=== PATIENT | male | born 1955 | race Caucasian/White ===

== ENCOUNTER 2022-08-01 16:31 | Emergency (ER) | payer MEDICARE, MEDICAID, SELFPAY ==
--- NOTE | ~2022-08-01 | CT_ITS ---
EXAMINATION: CT HEAD WITHOUT CONTRAST CLINICAL INFORMATION: AMS COMPARISON: None available. TECHNIQUE: Contiguous axial imaging was performed from the skull base to vertex without intravenous administration of contrast. This CT examination was performed using dose optimization techniques as appropriate, variously including the following: *Automated exposure control *Adjustment of mA and/or kV according to patient size (this includes techniques or standardized protocols for targeted exams where dose is matched to indication/reason for exam; i.e. extremities or head) *Use of iterative reconstruction technique DLP: 707 mGy-cm FINDINGS: No intracranial hemorrhage is identified. No abnormal extra-axial fluid collection is seen. No significant mass effect or midline structure shift ayala-white matter interface is maintained. There is mild prominence of the ventricles, sulci, and cisterns. No significant white matter disease is appreciated. Ayala-white matter interface is maintained. The calvarium is intact. Pterygoid plates intact. Temporomandibular joints appear unremarkable. The visualized paranasal sinuses and mastoid air cells are unremarkable other than for a small mucosal cyst within the right sphenoid sinus. CT/CT head/brain wo IV con IMPRESSION: No acute intracranial pathology.
[2022-08-01 16:36] VITALS: BP 139/73; PULSE 100; PULSE 104; RESP 20; O2SAT 96; BMI 27.1
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
--- OUTSIDE RECORDS SUMMARY | 2022-08-01 17:01 | XMS_ITS | Continuity of Care Document ---
Author Name Unknown Organization [facility] ter Address [address] [place] [id number]- Care Team Providers Care Cash Applications Analyst Name Role Phone Lesley Vo MD Primary Care Physician Encounter [facility] [place] Date(s): 08/28/21 - 08/29/[address] [address]- Encounter Diagnosis Dementia(Final) - 08/28/21 Schizoaffective disorder(Final) - 08/28/21 Agitation(Final) - 08/28/21 Discharge Disposition: A-Transfer SNF Attending Physician: Cesar Rutledge MD Admitting Physician: Cesar Rutledge MD Referring Physician: Not on Staff, Referring MD Allergies, Adverse Reactions, Alerts No Known Allergies Medications Acetaminophen 160 mg / 5 mL Liquid 20 mls, By Mouth, Every 4 hours, PRN pain/fever, Maintenance, 11/03/20 10:02:00 EDT, ; Start Date: 11/03/20 Status: Ordered acetaminophen 325 mg oral tablet 650 mg, 2, tablet, By Mouth, Every 4 hours, PRN, Maintenance, pain/fever, 11/03/20 10:03:00 EDT, ; Start Date: 11/03/20 Status: Ordered bisacodyl 10 mg rectal suppository 1 supp = 10 mg, Rectally, Daily, PRN for constipation, if no result from MOM, Maintenance, 11/03/2109:04:00 EDT, Suppository, ; Start Date: 11/03/20 Status: Ordered clonazePAM 0.5 mg oral tablet 1 tablet = 0.5 mg, By Mouth, Daily at bedtime, 7pm, Maintenance, 11/03/20 10:20:00 EDT, Tablet, ; Start Date: 11/03/20 Status: Ordered clonazePAM 0.5 mg oral tablet 1 tablet = 0.5 mg, By Mouth, Daily in AM, 6am, Maintenance, 11/03/20 10:25:00 EDT, ; Start Date: 11/03/20 Status: Ordered clonazePAM 1 mg oral tablet 1 tablet = 1 mg, By Mouth, Daily at bedtime, 7pm, Maintenance, 11/03/20 10:23:00 EDT, ; Start Date: 11/03/20 Status: Ordered clonazePAM 1 mg oral tablet 1 tablet = 1 mg, By Mouth, Daily, 2pm, Maintenance, 11/03/20 10:27:00 EDT, ; Start Date: 11/03/20 Status: Ordered Depo-Provera Contraceptive 150 mg/mL intramuscular suspension 1 mL = 150 mg, Intramuscular, Every 3 months, last 10/17/20 next 01/15/21, Maintenance, 11/03/20 10:16:00 EDT, Suspension, ; Start Date: 11/03/20 Status: Ordered escitalopram 10 mg oral tablet 1 tablet = 10 mg, By Mouth, Daily, Maintenance, 11/03/20 10:12:00 EDT, Tablet, ; Start Date: 11/03/20 Status: Ordered gabapentin 100 mg oral capsule 100 mg, 1, capsule, By Mouth, Every 4 hours, PRN, Maintenance, PAIN, 11/03/20 10:07:00 EDT, ; Start Date: 11/03/20 Status: Ordered gabapentin 100 mg oral capsule 200 mg, 2, capsule, By Mouth, Daily in AM, 9am, Maintenance, 11/03/20 10:22:00 EDT, ; Start Date: 11/03/20 Status: Ordered gabapentin 300 mg oral capsule 300 mg, 1, capsule, By Mouth, Daily at bedtime, 7pm, Maintenance, 11/03/20 10:26:00 EDT, ; Start Date: 11/03/20 Status: Ordered lithium 300 mg oral tablet, extended release 1 tablet = 300 mg, By Mouth, 2 times a day, 9am, 7pm, Maintenance, 11/03/20 10:13:00 EDT Start Date: 11/03/20 Status: Ordered Milk of Magnesia 30 mL, By Mouth, Daily at bedtime, PRN as needed for constipation, 400MG/5ML if no BM in 6 shifts, Maintenance, 11/03/20 10:08:00 EDT, ; Start Date: 11/03/20 Status: Ordered MiraLax oral powder for reconstitution = 17 Gm, By Mouth, Daily, dissolve in water before taking, Maintenance, 11/03/20 10:17:00 EDT, REC Powder, ; Start Date: 11/03/20 Status: Ordered Misc Rx 1, application, Rectally, Daily, Maintenance, CASTILE SOAP ENEMA 9 ML IF NO RESULT FROM FLEET ENEMA, 11/03/20 10:05:00 EDT, Supply Start Date: 11/03/20 Status: Ordered Narcan 4 mg/0.1 mL nasal spray = 4 mg, Naris, Left, Once, PRN as needed, Maintenance, 11/03/20 10:10:00 EDT, ; Start Date: 11/03/20 Status: Ordered Narcan Inj = 0.1 mg, IV Push Slowly, Once, PRN as needed, Maintenance, 11/03/20 10:11:00 EDT, Injection Start Date: 11/03/20 Status: Ordered RisperDAL 1 mg oral tablet 1 mg, 1, tablet, By Mouth, 2 times a day, Maintenance, 11/03/20 10:18:00 EDT, ; Start Date: 11/03/20 Status: Ordered Senna 8.6 mg oral tablet 8.6 mg, 1, tablet, By Mouth, 2 times a day, 8am, 7pm, Maintenance, 11/03/20 10:18:00 EDT, ; Start Date: 11/03/20 Status: Ordered traZODone 50 mg oral tablet 50 mg, 1, tablet, By Mouth, Daily at bedtime, 7pm, Maintenance, 11/03/20 10:20:00 EDT, ; Start Date: 11/03/20 Status: Ordered Results Radiology Reports * Exam Date Time Procedure Performing Provider Status 08/28/21 2:04 PM Chest 2 Views Frontal and Lat Estrella Payne; Auth (Verified) Notes: (Chest 2 Views Frontal and Lat) Reason For Exam: Shortness of Breath, Fever;Other: RESULT: Chest 2 Views Frontal and Lat PA and lateral chest dated August 28, 2021. No prior studies are available. HISTORY: Fever and shortness of breath. FINDINGS: The cardiac silhouette is within normal limits for size. Hilar and mediastinal structuresare unremarkable. No airspace infiltrate or pleural effusion is identified. The lungs are hyperinflated with flattened diaphragms and an increased retrosternal clear space. Degenerative changes are noted in the spine. IMPRESSION: No evidence of acute pulmonary disease. Findings are consistent with the clinical diagnosis of COPD. Examination [address]15[address]. Thank you for allowing me to participate in the care of this patient. WSN: [id number] Ordering Physician: Nannette Gonzalez Dictated By: Tim Solis MD Dictated Date/Time: 08/28/21 2:10 pm Reviewed By: Tim Solis MD Signed By: Tim Solis MD Signed Date/Time: 08/28/21 2:10 pm Transcribed By: MARLA Transcribed Date/Time: 08/28/21 2:06 pm Vital Signs Most recent to oldest [Reference Range]: 1 2 3 Oxygen Saturation [94-100 %] 97 % (08/29/21 12:03 AM) 98 % (08/28/21 6:50 PM) 96 % (08/28/21 12:55 PM) Pulse Rate [55-90 bpm] 96 bpm *H* (08/29/21 12:03 AM) 67 bpm (08/28/21 6:50 PM) 66 bpm (08/28/21 12:55 PM) Blood Pressure [90-138/55-84 mm Hg] 136/76mm Hg (08/29/21 12:03 AM) 148/68mm Hg *H* (08/28/21 6:50 PM) 121/57mm Hg (08/28/21 12:55 PM) Respiratory Rate [16-30 br/min] 16 br/min (08/29/21 12:03 AM) 20 br/min (08/28/21 6:50 PM) 18 br/min (08/28/21 12:55 PM) Temperature [96.8-100.4 DegF] 97.7 DegF (08/29/21 12:03 AM) 98 DegF (08/28/21 6:50 PM) 98.2 DegF (08/28/21 12:55 PM) Mode of Delivery (Oxygen) Room air (08/29/21 12:03 AM) Room air (08/28/21 6:50 PM) Room air (08/28/21 12:55 PM) Blood pressure sites Arm, left (08/29/21 12:03 AM) Arm, right (08/28/21 6:50 PM) Arm, right (08/28/21 12:55 PM) Temperature Route Oral (08/29/21 12:03 AM) Oral (08/28/21 6:50 PM) Oral (08/28/21 12:55 PM)
--- OUTSIDE RECORDS SUMMARY | 2022-08-01 17:01 | XMS_ITS | Continuity of Care Document ---
Author Name Unknown Organization [facility] ter Address [address] [place] [id number]- Care Team Providers Care Customer Servicer Name Role Phone Not on Staff, PCP Primary Care Physician Unavail able Encounter [facility] Date(s): 02/06/22 - 02/10/[address] [address] Discharge Disposition: A-Transfer SNF Attending Physician: Shweta Stephenson MD Admitting Physician: Christian Ramírez MD Referring Physician: Not on Staff, Referring MD Allergies, Adverse Reactions, Alerts No Known Allergies Immunizations Given and Recorded Vaccine Date Status Refusal Reason influenza virus vaccine, inactivated 03/01/21 Meir rded influenza virus vaccine, inactivated 05/20/15 Meir rded SARS-CoV-2 (COVID-19) mRNA BNT-162b2 vac 04/25/20 Recorded pneumococcal 23-valent vaccine 05/20/15 Recorded Medications acetaminophen 650 mg rectal suppository 1 supp = 650 mg, Rectally, Every 6 hours, PRN for fever, # 12 supp, 0 Refills, Maintenance, 02/06/22 10:59:00 EDT, Suppository, Partial fill upon patient request if the prescription is for a scheduleII opioid drug. Start Date: 02/06/22 Status: Ordered bisacodyl 10 mg rectal suppository 1 supp = 10 mg, Rectally, Daily, PRN for constipation, if no result from MOM, Maintenance, 11/03/2109:04:00 EDT, Suppository, ; Start Date: 11/03/20 Status: Ordered Depo-Provera Contraceptive 150 mg/mL intramuscular suspension 1 mL = 150 mg, Intramuscular, Every 3 months, next 03/15/2022, Maintenance, 11/03/20 10:16:00 EDT, Suspension, ; Start Date: 11/03/20 Status: Ordered Docusate/Senna Tablet 1 tablet, By Mouth, 2 times a day, PRN Constipation, 0 Refills, Maintenance, 02/04/22 16:19:00 EDT,Tablet, Partial fill upon patient request if the prescription is for a schedule II opioid drug. Start Date: 02/04/22 Status: Ordered Enoxaparin 0.4 mL = 40 mg, Subcutaneous Injection, Daily, 0 Refills, Maintenance, 02/09/22 12:05:00 EDT, Injection, Partial fill upon patient request if the prescription is for a schedule II opioid drug. Start Date: 02/09/22 Stop Date: 03/07/22 Status: Ordered escitalopram 10 mg oral tablet 1 tablet = 10 mg, By Mouth, Daily, Maintenance, 11/03/20 10:12:00 EDT, Tablet, ; Start Date: 11/03/20 Status: Ordered lithium 450 mg oral tablet, extended release 1 tablet = 450 mg, By Mouth, 2 times a day, 9am, 6pm, # 180 tablet, 0 Refills, Maintenance, 01/27/22 21:32:00 EDT, ER Tablet, Partial fill upon patient request if the prescription is for a schedule II opioid drug. Start Date: 01/27/22 Status: Ordered Milk of Magnesia 30 mL, [...] EDT, Injection Start Date: 11/03/20 Status: Ordered Risperdal Consta 50 mg intramuscular injection = 50 mg, Intramuscular, Every 14 days, 0 Refills, Maintenance, 01/28/22 8:10:00 EDT, Partial fill upon patient request if the prescription is for a schedule II opioid drug. Start Date: 01/28/22 Status: Ordered risperiDONE 0.5 mg oral tablet 0.5 mg, 1, tablet, By Mouth, Daily, in AM, # 30 tablet, Refills 0, Maintenance, 01/27/22 21:33:00 EDT, Partial fill upon patient request if the prescription is for a schedule II opioid drug. Start Date: 01/27/22 Status: Ordered risperiDONE 2 mg oral tablet 2 mg, 1, tablet, By Mouth, Daily, 6pm, # 30 tablet, Refills 0, Maintenance, 01/28/22 8:09:00 EDT, Partial fill upon patient request if the prescription is for a schedule II opioid drug. Start Date: 01/28/22 Status: Ordered Senna 8.6 mg oral tablet 8.6 mg, 1, tablet, By Mouth, 2 times a day, 9am, 6pm, Maintenance, 11/03/20 10:18:00 EDT, ; Start Date: 11/03/20 Status: Ordered traZODone 50 mg oral tablet 75 mg, 1.5, tablet, By Mouth, Daily, PRN, 6pm, Refills 0, Maintenance, Insomnia, 02/04/22 16:19:00 EDT, Partial fill upon patient request if the prescription is for a schedule II opioid drug. Start Date: 02/04/22 Status: Ordered Problem List Condition Confirmation Course Effective Dates Status Health St atus Informant Anemia Confirmed Active COPD without exacerbation Confirmed Active Dementia with behavioral disturbance Confirmed Active Results Radiology Reports * Exam Date Time Procedure Performing Provider Status 02/07/22 10:55 AM C-Arm < 1 Hour Santiago Elliott th (Verified) Notes: (C-Arm < 1 Hour) Reason For Exam: Right hip ORIF RESULT: C-Arm < 1 Hour Hip Comp 2 Views Right, C-Arm < 1 Hour INDICATION: Reason: Right hip ORIF COMPARISONS: 02/05/2022. TECHNIQUE: Fluoroscopy support was provided. There was no radiologist in attendance. FLUOROSCOPY TIME: 1 minute 13 seconds EXPOSURE: 4.3137 Gycm2 TECHNOLOGIST TIME: 55 minutes FINDINGS: Multiple views of the right hip and right proximal femur in frontal and lateral projections obtained by the portable image intensifier are available for interpretation. There is a minimally displaced right intertrochanteric hip fracture transfixed with an intramedullary lauren and 2 compression screws. The fracture fragments are in good alignment. Please refer to the operative report for more details. IMPRESSION: See above. WSN: [id number] Ordering Physician: Brittny Soria Dictated By: Ronald Perez MD, V Dictated Date/Time: 02/07/22 12:05 p Reviewed By: Ronald Perez MD, V Signed By: Ronald Perez MD, V Signed Date/Time: 02/07/22 12:05 pm Transcribed By: MARLA Transcribed Date/Time: 02/07/22 12:02 pm * Exam Date Time Procedure Performing Provider Status 02/07/22 10:55 AM XR Hip Comp 2 Views Right Simard, Ch ristine; Auth (Verified) Notes: (XR Hip Comp 2 Views Right) Reason For Exam: Right hip ORIF RESULT: Hip Comp 2 Views Right Hip Comp 2 Views Right, C-Arm < 1 Hour INDICATION: Reason: Right hip ORIF COMPARISONS: 02/05/2022. TECHNIQUE: Fluoroscopy support was provided. There was no radiologist in attendance. FLUOROSCOPY TIME: 1 minute 13 seconds EXPOSURE: 4.3137 Gycm2 TECHNOLOGIST TIME: 55 minutes FINDINGS: Multiple views of the right hip and right proximal femur in frontal and lateral projections obtained by the portable image intensifier are available for interpretation. There is a minimally displaced right intertrochanteric hip fracture transfixed with an intramedullary lauren and 2 compression screws. The fracture fragments are in good alignment. Please refer to the operative report for more details. IMPRESSION: See above. WSN: [id number] Ordering Physician: Brittny Soria Dictated By: Ronald Perez MD, V Dictated Date/Time: 02/07/22 12:05 p Reviewed By: Ronald Perez MD, V Signed By: Ronald Perez MD, V Signed Date/Time: 02/07/22 12:05 pm Transcribed By: MARLA Transcribed Date/Time: 02/07/22 12:02 pm * Exam Date Time Procedure Performing Provider Status 02/05/22 10:55 PM XR Femur 2 Views Right Ulices Guerrero; True (Verified) Notes: (XR Femur 2 Views Right) Reason For Exam: Trauma RESULT: Femur 2 Views Right Femur 2 Views Right INDICATION: Hx of Present Illness: presents from SNIf with known unwitnessed fall causing R femor fx. SNIF estimates fall happened earlier this AM. From EMS, unsure if pt was medicated or any tx given other than CT scan.; Reason: Trauma; Clinical Question(s): Fracture; Order Comment: Patient is Collared @ 2052 COMPARISON: None. FINDINGS: Mildly displaced right femur intertrochanteric fracture, mildly comminuted. No other fracture. Severe vascular calcification. IMPRESSION: Mildly displaced, mildly comminuted right femur intertrochanteric fracture. WSN: [id number] Ordering Physician: Julio Enriquez Dictated By: Madeline Langston MD Dictated Date/Time: 02/05/22 11:42 p Reviewed By: Madeline Langston MD Signed By: Madeline Langston MD Signed Date/Time: 02/05/22 11:42 pm Transcribed By: MARLA Transcribed Date/Time: 02/05/22 11:42 pm * Exam Date Time Procedure Performing Provider Status 02/05/22 10:55 PM Pelvis 1 or 2 Views Greg Guerrero ; True (Verified) Notes: (Pelvis 1 or 2 Views) Reason For Exam: Trauma RESULT: Pelvis 1 or 2 Views Pelvis 1 or 2 Views Hx of Present Illness: presents from SNIf with known unwitnessed fall causing R femor fx. SNIF estimates fall happened earlier this AM. From EMS, unsure if pt was medicated or any tx given other thanCT scan.; Reason: Trauma; Clinical Question(s): Fracture COMPARISON: None. FINDINGS: Mildly displaced right femur intertrochanteric fracture. There is no subluxation. Contrast-filled bladder. IMPRESSION: Mildly displaced right femur intertrochanteric fracture. WSN: [id number] Ordering Physician: Julio Enriquez Dictated By: Madeline Langston MD Dictated Date/Time: 02/05/22 11:42 p Reviewed By: Madeline Langston MD Signed By: Madeline Langston MD Signed Date/Time: 02/05/22 11:42 pm Transcribed By: MARLA Transcribed Date/Time: 02/05/22 11:41 pm Vital Signs Most recent to oldest [Reference Range]: 1 2 3 Height 184 cm (02/10/22 1:20 PM) 184 cm (02/10/22 10:31 AM) 184 cm (02/10/22 6:37 AM) Weight 80.3 kg (02/07/22 9:48 AM) 80.3 kg (02/06/22 4:53 PM) 200 kg (02/06/22 10:49 AM) Oxygen Saturation [94-100 %] 94 % (02/10/22 1:20 PM) 97 % (02/10/22 11:19 AM) 97 % (02/10/22 10:31 AM) Pulse Rate [55-90 bpm] 64 bpm (02/10/22 1:20 PM) 57 bpm (02/10/22 11:19 AM) 61 bpm (02/10/22 10:31 AM) Body Mass Index [18.5-24.99 kg/m2] 23.72 kg/m2 (02/07/22 9:48 AM) 59.07 kg/m2 *>HHI* (02/06/22 10:49 AM) Blood Pressure [90-138/55-84 mm Hg] 120/65mm Hg (02/10/22 1:20 PM) 109/55mm Hg (02/10/22 11:19 AM) 110/57mm Hg (02/10/22 10:31 AM) Respiratory Rate [16-30 br/min] 17 br/min (02/10/22 1:20 PM) 16 br/min (02/10/22 11:19 AM) 19 br/min (02/10/22 10:31 AM) Temperature [96.8-100.4 DegF] 98.1 DegF (02/10/22 1:20 PM) 97.5 DegF (02/10/22 11:19 AM) 98.0 DegF (02/10/22 10:31 AM) Liters per Minute 2 L/min (02/10/22 1:20 PM) 2 L/min (02/10/22 11:19 AM) 2 L/min (02/10/22 10:31 AM) Mode of Delivery (Oxygen) Nasal cannula (02/10/22 1:20 PM) Nasal cannula (02/10/22 11:19 AM) Nasal cannula (02/10/22 10:31 AM) Blood pressure sites Arm, right (02/10/22 1:20 PM) Arm, right (02/10/22 12:26 AM) Arm, right (02/09/22 7:44 PM) Temperature Route Oral (02/10/22 1:20 PM) Oral (02/10/22 11:19 AM) Oral (02/10/22 10:31 AM) Dry Weight 80.2 kg (02/06/22 10:49 AM) Note * [facility] , CIS S: TRANSCRIBE Ronald Perez MD, V: VERIFY Event Display: Result: Authored Date: Hip Comp 2 Views Right, C-Arm < 1 Hour INDICATION: Reason: Right hip ORIF COMPARISONS: 02/05/2022. TECHNIQUE: Fluoroscopy support was provided. There was no radiologist in attendance. FLUOROSCOPY TIME: 1 minute 13 seconds EXPOSURE: 4.3137 Gycm2 TECHNOLOGIST TIME: 55 minutes FINDINGS: Multiple views of the right hip and right proximal femur in frontal and lateral projections obtained by the portable image intensifier are available for interpretation. There is a minimally displaced right intertrochanteric hip fracture transfixed with an intramedullary lauren and 2 compression screws. The fracture fragments are in good alignment. Please refer to the operative report for more details. IMPRESSION: See above. WSN: [id number] Ordering Physician: Brittny Soria Dictated By: Ronald Perez MD, V Dictated Date/Time: 02/07/22 12:05 p Reviewed By: Ronald Perez MD, V Signed By: Ronald Perez MD, V Signed Date/Time: 02/07/22 12:05 pm Transcribed By: MARLA Transcribed Date/Time: 02/07/22 12:02 pm XR Hip - right 2 Views * [facility] , CIS S: TRANSCRIBE Ronald Perez MD, V: VERIFY Event Display: Result: Authored Date: Hip Comp 2 Views Right, C-Arm < 1 Hour INDICATION: Reason: Right hip ORIF COMPARISONS: 02/05/2022. TECHNIQUE: Fluoroscopy support was provided. There was no radiologist in attendance. FLUOROSCOPY TIME: 1 minute 13 seconds EXPOSURE: 4.3137 Gycm2 TECHNOLOGIST TIME: 55 minutes FINDINGS: Multiple views of the right hip and right proximal femur in frontal and lateral projections obtained by the portable image intensifier are available for interpretation. There is a minimally displaced right intertrochanteric hip fracture transfixed with an intramedullary lauren and 2 compression screws. The fracture fragments are in good alignment. Please refer to the operative report for more details. IMPRESSION: See above. WSN: [id number] Ordering Physician: Brittny Soria Dictated By: Ronald Perez MD, V Dictated Date/Time: 02/07/22 12:05 p Reviewed By: Ronald Perez MD, V Signed By: Ronald Perez MD, V Signed Date/Time: 02/07/22 12:05 pm Transcribed By: MARLA Transcribed Date/Time: 02/07/22 12:02 pm XR Pelvis 1 or 2 Views * [facility] , CIS S: TRANSCRIBE Madeline Langston MD: VERIFY Event Display: Result: Authored Date: [id number] Pelvis 1 or 2 Views Hx of Present Illness: presents from SN with known unwitnessed fall causing R femor fx. SN estimates fall happened earlier this AM. From EMS, unsure if pt was medicated or any tx given other thanCT scan.; Reason: Trauma; Clinical Question(s): Fracture COMPARISON: None. FINDINGS: Mildly displaced right femur intertrochanteric fracture. There is no subluxation. Contrast-filled bladder. IMPRESSION: Mildly displaced right femur intertrochanteric fracture. WSN: [id number] Ordering Physician: Julio Enriquez Dictated By: Madeline Langston MD Dictated Date/Time: 02/05/22 11:42 p Reviewed By: Madeline Langston MD Signed By: Madeline Langston MD Signed Date/Time: 02/05/22 11:42 pm Transcribed By: MARLA Transcribed Date/Time: 02/05/22 11:41 pm XR Femur - right 2 Views * [facility] , CIS S: TRANSCRIBE Madeline Langston MD: VERIFY Event Display: Result: Authored Date: [id number] Femur 2 Views Right INDICATION: Hx of Present Illness: presents from SNIf with known unwitnessed fall causing R femor fx. SNIF estimates fall happened earlier this AM. From EMS, unsure if pt was medicated or any tx given other than CT scan.; Reason: Trauma; Clinical Question(s): Fracture; Order Comment: Patient is Collared @ 2052 COMPARISON: None. FINDINGS: Mildly displaced right femur intertrochanteric fracture, mildly comminuted. No other fracture. Severe vascular calcification. IMPRESSION: Mildly displaced, mildly comminuted right femur intertrochanteric fracture. WSN: [id number] Ordering Physician: Julio Enriquez Dictated By: Madeline Langston MD Dictated Date/Time: 02/05/22 11:42 p Reviewed By: Madeline Langston MD Signed By: Madeline Langston MD Signed Date/Time: 02/05/22 11:42 pm Transcribed By: MARLA Transcribed Date/Time: 02/05/22 11:42 pm Patient Care team information Personnel Name: Not on Staff, PCP
--- OUTSIDE RECORDS SUMMARY | 2022-08-01 17:01 | XMS_ITS | Continuity of Care Document ---
Author Name Unknown Organization [facility] ter Address [address] [place] [id number]- Care Team Providers Care Wire Brush Maker Name Role Phone Not on Staff, PCP Primary Care Physician Unavail able Encounter [facility] Date(s): 04/01/22 - 04/13/[address] [address]- Encounter Diagnosis Altered mental status(Final) - 03/30/22 Pulmonary edema(Final) - 03/30/22 Discharge Disposition: A-Transfer SNF Attending Physician: Hernando Norris MD Admitting Physician: Claudette Neves MD Referring Physician: Not on Staff, Referring MD Allergies, Adverse Reactions, Alerts No Known Allergies Immunizations Given and Recorded Vaccine Date Status Refusal Reason influenza virus vaccine, inactivated 03/01/21 Meir rded influenza virus vaccine, inactivated 05/20/15 Meir rded SARS-CoV-2 (COVID-19) mRNA BNT-162b2 vac 04/25/20 Recorded pneumococcal 23-valent vaccine 05/20/15 Recorded Not Given Vaccine Date Status Refusal Reason influenza virus vaccine, inactivated 1 04/02/22 No t Given Patient Refuses 1Result Comment: Patient states I don't want that Medications acetaminophen 325 mg oral tablet 650 mg, 2, tablet, By Mouth, Every 6 hours, PRN, Maintenance, as needed for fever/pain, 03/30/22 18:48:00 EST, Partial fill upon patient request if the prescription is for a schedule II opioid drug. Start Date: 03/30/22 Status: Ordered Castile Soap Enema Castile Soap Enema, 1, each, Rectally, Once, PRN, Maintenance, 03/30/22 18:54:00 EST Start Date: 03/30/22 Status: Ordered docusate-senna 50 mg-187 mg oral tablet 1 tablet, By Mouth, 2 times a day, PRN Constipation, Maintenance, 03/30/22 18:51:00 EST, Tablet, Partial fill upon patient request if the prescription is for a schedule II opioid drug. Start Date: 03/30/22 Status: Ordered Eliquis 5 mg oral tablet 1 tablet = 5 mg, By Mouth, 2 times a day, Maintenance, 03/30/22 18:44:00 EST, Tablet, Partial fill upon patient request if the prescription is for a schedule II opioid drug. Start Date: 03/30/22 Status: Ordered Ensure Liquid Vanilla Ensure Liquid Vanilla, 237, mL, By Mouth, 3 times a day, Maintenance, 03/30/22 18:55:00 EST Start Date: 03/30/22 Status: Ordered Fleet Enema 19 gm-7 gm rectal enema 1 each, Rectally, Once, PRN for constipation, Maintenance, 03/30/22 18:52:00 EST, Enema, Partial fill upon patient request if the prescription is for a schedule II opioid drug. Start Date: 03/30/22 Status: Ordered Glucagon Emergency Kit 1 mg, Intramuscular, Once, PRN, Maintenance, as needed, 03/30/22 18:56:00 EST, Supply Start Date: 03/30/22 Status: Ordered Glutose 15 oral gel = 15 Gm, By Mouth, Once, PRN as needed, Maintenance, 03/30/22 18:57:00 EST, Partial fill upon patient request if the prescription is for a schedule II opioid drug. Start Date: 03/30/22 Status: Ordered Milk of Magnesia 30 mL, By Mouth, Daily at bedtime, PRN as needed for constipation, 400MG/5ML if no BM in 6 shifts, Maintenance, 11/03/20 10:08:00 EDT, ; Start Date: 11/03/20 Status: Ordered MiraLax oral powder for reconstitution = 17 Gm, By Mouth, Daily, dissolve in water before taking, Maintenance, 11/03/20 10:17:00 EDT, REC Powder, ; Start Date: 11/03/20 Status: Ordered Muscle Rub Apply, Topically, 2 times a day, PRN Pain, to shoulders, Maintenance, 03/30/22 18:53:00 EST, Partial fill upon patient request if the prescription is for a schedule II opioid drug. Start Date: 03/30/22 Status: Ordered RisperDAL 0.25 mg oral tablet 0.25 mg, 1, tablet, By Mouth, 2 times a day, Refills 0, Maintenance, 04/13/22 10:57:00 EST, Partialfill upon patient request if the prescription is for a schedule II opioid drug. Start Date: 04/13/22 Status: Ordered selenium sulfide 2.25% topical shampoo Topically, Shampoo to scalp twice weekly, Maintenance, 03/30/22 19:13:00 EST, Partial fill upon patient request if the prescription is for a schedule II opioid drug. Start Date: 03/30/22 Status: Ordered Senna 8.6 mg oral tablet 8.6 mg, 1, tablet, By Mouth, 2 times a day, 9am, 6pm, Maintenance, 11/03/20 10:18:00 EDT, ; Start Date: 11/03/20 Status: Ordered Problem List Condition Confirmation Course Effective Dates Status Health St atus Informant Altered mental status Confirmed Active Anemia Confirmed Active COPD without exacerbation Confirmed Active Dementia with behavioral disturbance Confirmed Active Results Orders for Microbiology Reports Name Date Blood Culture 03/30/22 Blood Culture #2 03/30/22 Microbiology Reports TEST:Blood Culture STATUS:Auth (Verified) BODY SITE: SOURCE:Blood COLLECTED DATE/TIME:03/30/22 4:12 PM Blood Culture SPECIMEN DESCRIPTION : BLOOD RT ARM SPECIAL REQUESTS : NONE CULTURE : NO GROWTH 5 DAYS. REPORT STATUS : FINAL 04/04/2022 TEST:Blood Culture, Second Order STATUS:Auth (Verified) BODY SITE: SOURCE:Blood COLLECTED DATE/TIME:03/30/22 10:37 AM Blood Culture, Second Order SPECIMEN DESCRIPTION : BLOOD LHAND SPECIAL REQUESTS : NONE CULTURE : NO GROWTH 5 DAYS. REPORT STATUS : FINAL 04/04/2022 Radiology Reports * Exam Date Time Procedure Performing Provider Status 04/05/22 6:33 AM Chest Portable Ciera Gilmore; Auth (V erified) Notes: (Chest Portable) Reason For Exam: Shortness of Breath RESULT: Chest Portable Chest Portable Reason: Shortness of Breath; Clinical Question(s): Pneumonia COMPARISON: Chest radiographs dated March 30, 2022. FINDINGS: LINES AND TUBES: None. LUNGS AND PLEURA: Irregular opacity in the right lung apex corresponds with subpleural scarring on the recent chest CT. Normal pulmonary vascularity with resolution of previously seen edema. No pleural effusion. No pneumothorax. HEART, MEDIASTINUM AND RAN: Heart is normal in size. Normal mediastinal and hilar contour. BONES AND SOFT TISSUES: No acute abnormality. IMPRESSION: No acute abnormality. WSN: [id number] Ordering Physician: Tonya Asencio Dictated By: Toni Sosa MD Dictated Date/Time: 04/05/22 8:49 am Reviewed By: Toni Sosa MD Signed By: Toni Sosa MD Signed Date/Time: 04/05/22 8:49 am Transcribed By: MARLA Transcribed Date/Time: 04/05/22 8:46 am * Exam Date Time Procedure Performing Provider Status 03/30/22 11:45 AM Chest Portable Renu Toledo; Auth (Verified) Notes: (Chest Portable) Reason For Exam: COPD RESULT: Chest Portable Chest Portable Hx of Present Illness: see level 1 sheet; Reason: COPD; Clinical Question(s): CHF COMPARISON: Radiograph of the chest dated 01/27/2022. FINDINGS: LINES AND TUBES: None. LUNGS AND PLEURA: Increased interstitial markings with fluid tracking along the right horizontal fissure, consistent with pulmonary edema. There is increased prominence of pulmonary vasculature. No pleural effusion. No pneumothorax. HEART, MEDIASTINUM AND RAN: Unchanged cardiomediastinal silhouette. BONES AND SOFT TISSUES: No acute abnormality. IMPRESSION: Findings are consistent with moderate pulmonary edema. WSN: [id number] Ordering Physician: Sher Gamble Dictated By: Opal Delatorre MD Dictated Date/Time: 03/30/22 12:40 p Reviewed By: Opal Delatorre MD Signed By: Opal Delatorre MD Signed Date/Time: 03/30/22 12:40 pm Transcribed By: MARLA Transcribed Date/Time: 03/30/22 12:36 pm * Exam Date Time Procedure Performing Provider Status 03/30/22 10:[address] Head/Brain W/O Contrast Stephanie He; Auth (Verified) Notes: (CT Head/Brain W/O Contrast) Reason For Exam: Dementia RESULT: CT Head/Brain W/O Contrast CT Head/Brain W/O Contrast CLINICAL INDICATION: Reason: Dementia; Clinical Question(s): Subarachnoid Hemorrhage; Order Comment:. PRIOR EXAMS: 02/09/2022. TECHNIQUE: Head CT was performed without intravenous contrast, using axial technique and reconstructed in axial and coronal plane. Iterative reconstruction techniques are used to optimize dose and image quality. CTDIvol Head: 47.90 mGy, DLP Head: 966 mGy*cm. FINDINGS: BRAIN: There is no infarct. There is no intracerebral hemorrhage. There is no mass. VENTRICLES, SULCI, AND CISTERNS: The ventricles and sulci are symmetrical and show atrophic change greater than expected for age.. WHITE MATTER: Minimal white matter abnormality. EXTRA AXIAL SPACES: There is no abnormal epidural, subdural, or subarachnoid blood or fluid. SKULL: There is no skull fracture.. PARANASAL SINUSES: Small amount of fluid right maxillary sinus. Retention cyst left maxillary sinus.. TEMPORAL BONES: The mastoid air cells are clear, as are the middle ear cavities. IMPRESSION: 1. No acute intracranial abnormality. 2. No skull fracture. 3. Mild sinus disease. WSN: [id number] Ordering Physician: Sher Gamble Dictated By: Kiko Finn MD Dictated Date/Time: 03/30/22 11:52 a Reviewed By: Kiko Finn MD Signed By: Kiko Finn MD Signed Date/Time: 03/30/22 11:52 am Transcribed By: MARLA Transcribed Date/Time: 03/30/22 11:47 am Vital Signs Most recent to oldest [Reference Range]: 1 2 3 Weight 76.2 kg (04/13/22 8:57 AM) 79.9 kg (04/12/22 5:00 AM) 78.5 kg (04/07/22 7:08 AM) Oxygen Saturation [94-100 %] 98 % (04/13/22 11:00 AM) 96 % (04/13/22 5:00 AM) 96 % (04/12/22 9:00 PM) Pulse Rate [55-90 bpm] 63 bpm (04/13/22 11:00 AM) 72 bpm (04/13/22 5:00 AM) 69 bpm (04/12/22 9:00 PM) Blood Pressure [90-138/55-84 mm Hg] 110/61mm Hg (04/13/22 11:00 AM) 130/98mm Hg (04/13/22 5:00 AM) 127/65mm Hg (04/12/22 9:00 PM) Respiratory Rate [16-30 br/min] 18 br/min (04/13/22 11:00 AM) 18 br/min (04/13/22 5:00 AM) 18 br/min (04/12/22 9:00 PM) Temperature [96.8-100.4 DegF] 97.6 DegF (04/13/22 11:00 AM) 98.1 DegF (04/13/22 5:00 AM) 97.9 DegF (04/12/22 9:00 PM) Liters per Minute 3 L/min (04/06/22 4:42 AM) 3 L/min (04/05/22 10:29 PM) 3 L/min (04/05/22 5:04 PM) Mode of Delivery (Oxygen) Room air (04/13/22 11:00 AM) Room air (04/13/22 5:00 AM) Room air (04/12/22 9:00 PM) Blood pressure sites Arm, left (04/13/22 11:00 AM) Arm, left (04/13/22 5:00 AM) Arm, right (04/12/22 9:00 PM) Temperature Route Oral (04/13/22 11:00 AM) Oral (04/13/22 5:00 AM) Oral (04/12/22 9:00 PM) Weight Obtained Via Bed scale (04/13/22 8:57 AM) Bed scale (04/12/22 5:00 AM) Bed scale (04/07/22 7:08 AM) Admission evaluation note * Carley CLEMENTE, Leatha Cardona: PERFORM Event Display: Admission Note Authored Date: Patient: ??YAEL LUONG ? Age:??66 Years?Sex:??Male?:??1955?? Chief Complaint/Reason for Consultation ems was at facility for transport to orthopedic apt. when ems found pt was unresponsive History of Present Illness This is a 66-year-old gentleman with a past medical history of anoxic brain injury, schizoaffectivedisorder, dementia with behavioral disturbance, chronic pain syndrome, insomnia, Parkinson's disease, [id number]-vrihskqiy diabetes with neuropathy, COPD, PE on Eliquis, previous tobacco use, hypertension and anemia who was admitted to [facility] in late January for intertrochanteric right hip fracture and prior to that in early January for metabolic encephalopathy in the setting ofpneumonia comes to the emergency room via EMS for lethargy and unresponsiveness. ?? Of note, during prior hospitalization, patient was found to have??A 1.3 cm cavitary lesion along the pleura in the right upper lobe demonstrates less wall thickening from previous. Unchanged hilar lymphadenopathy. Suspect infectious etiology versus neoplasm. ??Patient had a follow-up CAT scan on that showed moderate burden of PE in the left lower lobe, it seems that since then he is on Eliquis. ??Also showed new wedge-shaped consolidation posteriorly in the left lower lobe which could represent atelectasis or infarct and showed persistent pleural-based and wedge-shaped consolidation in the right upper lobe which could be infectious inflammatory or malignant. ??Patient's sister was not aware about him having a PE recently. ??Patient does not have any outpatient rug sample beveler. ?? Patient was found to be unresponsive by EMS, his vitals/serum glucose were WNL however patient was unarousable, and was unable to awake or elicit pain response with sternal rub. ??Per my discussion with sister, patient did have similar episodes of lethargy during prior hospitalization and he was taken off certain antipsychotics however [facility] the [facility], he was restarted on these. Post presentation to the ER, he did wake up, around 8:30 AM, he was eating his breakfast, plan was for discharge however in the afternoon, TURKEY BONER again noted that patient was unarousable. ??Patient got his lithium, Risperdal and escitalopram all around 10:15 AM. ??Patient's GCS was 6 however was given that he was maintaining his airway and vitals were stable, he was not intubated. ??Psych was consulted to help with medication adjustments given concern for polypharmacy causing lethargy ?? Given that patient is on Eliquis, he had a CT head noncontrast that was negative for any acute abnormalities. Patient is requiring 2 L nasal cannula to maintain saturations around 96%, chest x-ray was done that showed findings consistent with moderate pulmonary edema and he was given a small dose of 20 mg IVLasix once. ?During my evaluation of the patient, patient is alert, awake, he knows his name and date of birthbut beyond this, he does not know date, time, current location, or why he is in the ER. ??Per his sister, this is his baseline. ??He is a full code ?? Patient has been admitted for evaluation and management of acute encephalopathy, lethargy. Review of Systems Patient is alert awake oriented x1, he knows his name and date of but beyond that, he does not??participate in much review of systems and hence review of systems is limited. ??Please refer to HPI for more information Objective Vital Signs?? Temperature: 99 DegF (03/30/22 11:02:00) Temperature Route: Rectal (03/30/22 11:02:00) Pulse Rate: 79 bpm (03/30/22 18:57:00) Respiratory Rate: 16 br/min (03/30/22 18:57:00) Systolic Blood Pressure: 119 mm Hg (03/30/22 18:57:00) Diastolic Blood Pressure: 75 mm Hg (03/30/22 18:57:00) Pulse Pressure: 44 mm Hg (03/30/22 18:57:00) Oxygen Saturation: 96 % (03/30/22 18:57:00) Liters per Minute: 2 L/min (03/30/22 18:57:00) Mode of Delivery (Oxygen): Nasal cannula (03/30/22 18:57:00) Early Warning Score: 0 (03/30/22 18:58:09) ? Intake/Output? 03/30 10:15 03/30 07:00 12 07:00 03/28 07:00 03/27 07:00 ?? 03/30 22:12 03/30 22:12 03/30 06:59 03/29 06:59 03/28 06:59 Intake ?0 ?0 ?0 ?0 ?0 Output ? 1400 ? 1400 ?0 ?0 ?0 Net Total ?-1400 ?-1400 ?0 ?0 ?0 ? Physical Exam General Appearance: Alert, answers questions in yes or no. HEENT: Normocephalic, atraumatic, PERRL, EOMI, no scleral icterus, no facial droop, moist mucous membranes, poor dentition with no oropharynx lesions?? Neck: Supple, no JVD, Cardiac: RRR, S1 & S2 present, no m / r / g appreciated Chest: Clear to auscultation bilaterally, no wheezing / ronchi / rales, bruises over anterior chestwall Abdomen: Soft, nontender, no distention, no rebound or guarding, no masses, normal bowel sounds in all quadrants Extremities: No clubbing or cyanosis, trace edema. ??2+ distal pulses. ??Capillary refill < 3 seconds.? Skin: Warm, dry Neuro: ??Alert, disoriented to time,??gross sensation intact.?? Moving all 4 extremities spontaneously Psych: ??Stable mood currently Assessment/Plan Diagnoses Altered mental status ??(R41.82) Altered mental status ??(R41.82) Pulmonary edema ??(J81.1) Pulmonary embolism ??(I26.99) ?? Assessment:??This is a 66-year-old gentleman with a past medical history of anoxic brain injury, schizoaffective disorder, dementia with behavioral disturbance, chronic pain syndrome, insomnia, Parkinson's disease, vtm-glbfxty-xxcsfmuyk diabetes with neuropathy, COPD, PE on Eliquis, previous tobacco use, hypertension and anemia who was admitted to [facility] in late January for intertrochanteric right hip fracture and prior to that in early January for metabolic encephalopathy in the setting of pneumonia comes to the emergency room via EMS for lethargy and unresponsiveness. Patient has been admitted for evaluation and management of acute encephalopathy, lethargy. ?? Altered mental status (R41.82):??Patient presenting??altered,??unresponsive and lethargic,??it resolved post presentation to the ER however??happened again after he was given lithium escitalopram as well as risperidone.??Currently, he is back to his baseline mental status, is protecting his airway??I suspect,??the cause of his lethargy/poor responsiveness is polypharmacy. He is on lithium, risperidone, citalopram,??clonazepam as well as trazodone.??Definitely needs medication adjustments.?For now, I am temporarily holding all of these??and will request psych evaluation.??If needed??for agitation/anxiety, may consider using as needed??Zyprexa overnight Renal function WNL, liver function WNL, no history of toxic ingestions, alcohol use/drug use. Patient did not respond??to Narcan given by ED. CT head is unremarkable. Doubt CO2 narcosis??given??reversible nature of his lethargy Patient is afebrile, no leukocytosis,??no lactic acidosis, doubt infectious encephalopathy Serum glucose/electrolytes are WNL, doubt metabolic encephalopathy Patient had a similar presentation in January at which time, thiamine B12 as well as TSH were done which were all WNL ?? Pulmonary edema (J81.1):??Chest x-ray shows moderate pulmonary edema, he is requiring 1 to 2 L O2. He is not in any obvious respiratory distress,??proBNP is not elevated.??He has received a small??dose of IV Lasix???20 mg. He has a [place] catheter.??For now, I will keep him on 20 mg of IV Lasix daily with daily weights and intake and output checks.??No prior history of??CHF as far as I can tell however??we will check an echocardiogram.??Renal function, liver function and serum albumin are all WNL No reported chest pain however patient was unable to provide much history. Doubt ACS precipitating new CHF. His first high-sensitivity troponin was 18, will check another 1. EKG shows normal sinus rhythm with nonspecific T wave abnormalities however no obvious ischemic changes Will use as needed nebs??for shortness of breath/wheezing ?? Pulmonary embolism (I26.99):??Diagnosed of PE in late February of this year, on Eliquis. In addition, patient has??other abnormalities on chest imaging including new wedge-shaped consolidation posteriorly in the left lower lobe which could represent atelectasis or infarct and showed persistent pleural-based and wedge-shaped consolidation in the right upper lobe which could be infectious inflammatory or malignant.?Patient does not have an outpatient rug sample beveler.??Please request nonurgent pulm evaluation in the morning for further??work-up??of the wedge-shaped consolidation in right upper lobe ? Schizoaffective disorder???holding antipsychotic meds as mentioned above ?? Patient had a similar presentation in January at which time, thiamine B12 as well as TSH were done which were all WNL ?? VTE Prophylaxis:??High risk for VTE, already anticoagulated on Eliquis ?VTE Prophylaxis Assessment:??VTE Prophylaxis Ordered ?? Code Status:??I discussed with healthcare proxy and sisterJean,??patient is full code ?Order Code Status:??Code Status Ordered ?? Discharge Planning:??Likely in 1 to 2 days ?? Plan of care was discussed with??patient's?? healthcare proxy JEAN LUONG, all questions answered ? Histories Allergies Allergies ?(Active and Proposed Allergies Only) NKA? (Severity: Unknown severity, Onset: Unknown) ? Past Medical History/Problem List Active Problems??(4) Altered mental status Anemia COPD without exacerbation Dementia with behavioral disturbance ? Past Surgical History Unable to be be obtained,??given patient's current mental status ? Social History Unable to be be obtained,??given patient's current mental status ? Family History Unable to be be obtained,??given patient's current mental status ? Medications Home Medications Acetaminophen (acetaminophen 650 mg rectal suppository)?1?suppository(ies)?650?Milligram?Rectally?Every 6 hours?as needed?as needed for fever/pain Acetaminophen (acetaminophen 325 mg oral tablet)?650?Milligram?2?tablet?By Mouth?Every 6 hours?as needed?as needed for fever/pain apixaban (Eliquis 5 mg oral tablet)?1?tab(s)?5?Milligram?By Mouth?2 times a day Bisacodyl (bisacodyl 10 mg rectal suppository)?1?suppository(ies)?10?Milligram?Rectal ly?Daily?as needed?for constipation?if no result from MOM Clonazepam (clonazePAM 0.5 mg oral tablet)?1?tab(s)?0.5?Milligram?By Mouth?2 times a day Docusate-Senna (docusate-senna 50 mg-187 mg oral tablet)?1?tab(s)?By Mouth?2 times a day?as needed?Constipation Durable Medical Equipment (Glucagon Emergency Kit)?1?Milligram?Intramuscular?once?asneeded?as needed Escitalopram (escitalopram 10 mg oral tablet)?1?tab(s)?10?Milligram?By Mouth?Daily Glucose (Glutose 15 oral gel)?15?gram?By Mouth?Once?as needed?as needed Reubens (lithium 450 mg oral tablet, extended release)?1?tab(s)?450?Milligram?By Mouth?2 times a day Methyl Salicylate-Menthol Topical (Muscle Rub)?Apply?Topically?2 times a day?as needed?Pain?to shoulders Milk of Magnesia?30?Milliliter?By Mouth?Daily at bedtime?as needed?as needed for constipation?400MG/5MLif no BM in 6 shifts Miscellaneous Rx (Castile Soap Enema)?1?Each?Rectally?Once?as needed?Constipation Miscellaneous Rx (Ensure Liquid Vanilla)?237?Milliliter?By Mouth?3 times a day nalOXONE (Narcan 4 mg/0.1 mL nasal spray)?4?Milligram?Naris, Left?Once?as needed?as needed nalOXONE (Narcan Inj)?0.1?Milligram?IV Push Slowly?Once?as needed?as needed Polyethylene Glycol 3350 (MiraLax oral powder for reconstitution)?17?gram?By Mouth?Daily?dissolve in water before taking Risperidone (risperiDONE 0.5 mg oral tablet)?0.5?Milligram?1?tablet?By Mouth?Daily Risperidone (risperiDONE 2 mg oral tablet)?2?Milligram?1?tablet?By Mouth?Daily?6pm Risperidone (Risperdal Consta 50 mg intramuscular injection)?50?Milligram?Intramuscular?Every 14 days Selenium Sulfide Topical (selenium sulfide 2.25% topical shampoo)?Topically?Shampoo to scalp twice weekly Senna (Senna 8.6 mg oral tablet)?8.6?Milligram?1?tab(s)?By Mouth?2 times a day?9am, 6pm Sodium Biphosphate-Sodium Phosphate (Fleet Enema 19 gm-7 gm rectal enema)?1?Each?Rectally?Once?as needed?for constipation Trazodone (traZODone 150 mg oral tablet)?0.5?tab(s)?75?Milligram?By Mouth?Daily at bedtime ? Results Recent Labs BLOOD COUNT & DIFF WBC 8.1 k/mm3 ()?? 03/30/2022 10:37 RBC 4.05 m/mm3 (Low)?? 03/30/2022 10:37 Hgb 11.9 Gm/dL (Low)?? 03/30/2022 10:37 Hct 38.5 % (Low)?? 03/30/2022 10:37 MCV 95.1 femtoliters (High)?? 03/30/2022 10:37 MCH 29.4 pg ()?? 03/30/2022 10:37 MCHC 30.9 g/dL (Low)?? 03/30/2022 10:37 Platelet Count 232 k/mm3 ()?? 03/30/2022 10:37 RDW-SD 53.8 femtoliters (High)?? 03/30/2022 10:37 MPV 9.7 femtoliters ()?? 03/30/2022 10:37 Nucleated RBC (Automated) 0.0 #/100 WBC'S ()?? 03/30/2022 10:37 Abs. NRBC 0.0 k/mm3 ()?? 03/30/2022 10:37 Abs. Neut 5.1 k/mm3 ()?? 03/30/2022 10:37 Abs. Lymph 2.1 k/mm3 ()?? 03/30/2022 10:37 Abs. [place] 0.5 k/mm3 ()?? 03/30/2022 10:37 Abs. Eo 0.3 k/mm3 ()?? 03/30/2022 10:37 Abs. Baso 0.0 k/mm3 ()?? 03/30/2022 10:37 Neut % 63.4 % ()?? 03/30/2022 10:37 Lymph % 26.4 % ()?? 03/30/2022 10:37 [place] % 5.8 % ()?? 03/30/2022 10:37 Eos % 3.7 % ()?? 03/30/2022 10:37 Baso % 0.5 % ()?? 03/30/2022 10:37 Imm Gran 0.2 % ()?? 03/30/2022 10:37 Abs. Imm Gran 0.0 k/mm3 ()?? 03/30/2022 10:37 ?? CARDIAC Nt-Probnp 92 pg/mL ()?? 03/30/2022 10:37 High Sensitivity Troponin (HSTnT) 18 ng/L ()?? 03/30/2022 10:23 ?? CHEM GENERAL Sodium 140 mmol/L ()?? 03/30/2022 10:37 Potassium 4.0 mmol/L ()?? 03/30/2022 10:37 Chloride 106 mmol/L ()?? 03/30/2022 10:37 Bicarbonate Level 25 mmol/L ()?? 03/30/2022 10:37 Anion Gap 9 ()?? 03/30/2022 10:37 Glucose Level 121 mg/dL (High)?? 03/30/2022 10:37 Glucose, POC 115 mg/dL (High)?? 03/30/2022 10:20 BUN 17 mg/dL ()?? 03/30/2022 10:37 Creatinine-Blood 0.9 mg/dL ()?? 03/30/2022 10:37 Estimated GFR Creatinine 94 ML/MIN/1.73 M2 ()?? 03/30/2022 10:37 Calcium 9.1 mg/dL ()?? 03/30/2022 10:37 Magnesium 2.1 mg/dL ()?? 03/30/2022 10:37 Protein, Total 6.6 Gm/dL ()?? 03/30/2022 10:37 Albumin 3.7 Gm/dL ()?? 03/30/2022 10:37 AG Ratio 1.3 ()?? 03/30/2022 10:37 Alkaline Phosphatase 160 units/L (High)?? 03/30/2022 10:37 Lipase 44 units/L ()?? 03/30/2022 10:37 AST (SGOT) 13 units/L ()?? 03/30/2022 10:37 ALT (SGPT) 8 units/L ()?? 03/30/2022 10:37 Bilirubin, Total 0.3 mg/dL ()?? 03/30/2022 10:37 Lactate 1.3 mmol/L ()?? 03/30/2022 10:23 ?? ENDOCRINE/TUMOR MARKER TSH 2.85 uIU/mL ()?? 03/30/2022 10:37 ?? TOXICOLOGY/TDM Reubens Level 0.5 mmol/L (Low)?? 03/30/2022 10:37 ?? UA/URINALYSIS Appear/Color, Urine LIGHT YELLOW ()?? 03/30/2022 14:50 Specific [place], Urine 1.019 ()?? 03/30/2022 14:50 pH, Urine 6.5 ()?? 03/30/2022 14:50 Albumin, Urine NEGATIVE ()?? 03/30/2022 14:50 Glucose, Urine NEGATIVE ()?? 03/30/2022 14:50 Ketones, Urine NEGATIVE ()?? 03/30/2022 14:50 Bilirubin, Urine NEGATIVE ()?? 03/30/2022 14:50 Hemoglobin, Urine NEGATIVE ()?? 03/30/2022 14:50 Nitrite, Urine NEGATIVE ()?? 03/30/2022 14:50 Leukocyte, Urine NEGATIVE ()?? 03/30/2022 14:50 Urobilinogen NORMAL mg/dL ()?? 03/30/2022 14:50 WBC's, Urine 1 /HPF ()?? 03/30/2022 14:50 RBC's, Urine 1 /HPF ()?? 03/30/2022 14:50 Bacteria SLIGHT HPF (Abnormal)?? 03/30/2022 14:50 Squamous Epith <1 /HPF ()?? 03/30/2022 14:50 Mucus SLIGHT /LPF ()?? 03/30/2022 14:50 Hold Urine Culture Testing available 48 hours from time of collection. ()?? 03/30/2022 14:50 ?? VIROLOGY COVID-19 by RT-PCR NEGATIVE ()?? 03/30/2022 10:42 ? Urinalysis Albumin, Urine: NEGATIVE (14:50) Appear/Color, Urine: LIGHT YELLOW (14:50) Bacteria: SLIGHT Abnormal (14:50) Bilirubin, Urine: NEGATIVE (14:50) Glucose, Urine: NEGATIVE (14:50) Hemoglobin, Urine: NEGATIVE (14:50) Hold Urine Culture: Testing available 48 hours from time of collection. (14:50) Ketones, Urine: NEGATIVE (14:50) Leukocyte, Urine: NEGATIVE (14:50) Mucus: SLIGHT (14:50) Nitrite, Urine: NEGATIVE (14:50) pH, Urine: 6.5 (14:50) RBC's, Urine: 1 /HPF (14:50) Specific [place], Urine: 1.019 (14:50) Squamous Epith: <1 (14:50) Urobilinogen: NORMAL (14:50) WBC's, Urine: 1 /HPF (14:50) ?? EKG study * Event Display: ECG 12-Lead Authored Date: Please click on pdf link to open report * Event Display: ECG 12-Lead Authored Date: Ventricular Rate: 63 BPM Atrial Rate: 63 BPM P-R Interval: 178 ms QRS Duration: 88 ms Q-T Interval: 458 ms QTC Calculation(Bazett): 468 ms P [place]: 81 degrees R [place]: -12 degrees T [place]: 77 degrees Normal sinus rhythm Normal ECG When compared with ECG of 30-MAR-2022 10:33, QT has lengthened Confirmed by FLOYD NEIL ([id number]) on 04/05/2022 9:43:48 AM [place]: FLOYD NEIL * Event Display: EKG Authored Date: * Event Display: ECG 12-Lead Authored Date: Please click on pdf link to open report * Event Display: ECG 12-Lead Authored Date: Ventricular Rate: 79 BPM Atrial Rate: 79 BPM P-R Interval: 180 ms QRS Duration: 90 ms Q-T Interval: 318 ms QTC Calculation(Bazett): 364 ms P [place]: 71 degrees R [place]: 39 degrees T [place]: 86 degrees Normal sinus rhythm Nonspecific T wave abnormality Abnormal ECG When compared with ECG of 28-JAN-2022 18:30, QT has shortened Confirmed by PANFILO MEDINA MD ([id number]) on 03/30/2022 10:45:36 AM [place]: PANFILO MEDINA MD Heart * Event Display: Echocardiogram - Complete Authored Date: [id number] Transthoracic Echocardiography Report (TTE) Patient Demographics Patient Name YAEL LUONG Date of Study 04/05/2022 Corporate Gender Male Facility Race Ethnicity Date of 1955 Height: 72.44 inches Age 66 year(s) Weight: 176.38 pounds Accession Number [id number] BSA: 2.03 m2 Room Number [id number] BMI: 23.63 kg/m2 Referring Physician Carley Zhang Interpreting Tyree Lal MD Physician Window Installer Juarez Sheth Indications Shortness of breath. Study Data Type of Study TTE procedure:Echo Complete-Doppler, Colorflow, M-Mode. Study Date04/05/2022 Start Time: 09:50 AM Study Location: [facility] Adult Echo Study Status: Bedside Patient Status: Routine Technical Quality: Fair Blood Pressure:152/74 mmHg EKG: Normal sinus rhythm HR: 55 bpm 2D Measurements LV Diastolic Dimension: 4.8 cm LV Systolic Dimension: 3.2 cm LV Septum Diastolic: 0.9 cm LV PW Diastolic: 0.9 cm AO Root Dimension: 3.2 cm LA Dimension: 3 cm LA ESV (BP):57.7 ml LVOT Stroke Volume: 82.83 ml LA ESV Index: 28 ml/m2 Stroke Volume Index40.8 ml/m2 LVOT: 2.2 cm Cardiac Index:2.25 l/min/m2 Ascending Aorta:3.2 cm Doppler Measurements AV Peak Velocity: 115 cm/s MV Peak E-Wave: 84.6 cm/s AV Peak Gradient: 5.29 mmHg MV Peak A-Wave: 79.9 cm/s AV Mean Gradient: 3 mmHg MV E/A Ratio: 1.06 AV VTI:26.7 cm LVOT Peak Velocity: 95.3 cm/s LVOT VTI21.8 cm MV Deceleration Time: 225 msec AV Area (Continuity):3.1 cm2 AV P1/2t: 189 msec TR Velocity:260 cm/s TR Gradient:27.04 mmHg Estimated RAP:5 mmHg Estimated RVSP: 32 mmHg E' Septal Velocity: 9.46 cm/s E' Lateral Velocity: 11.5 cm/s E/Med E':[id number] E/Lat E':7.793310 Cardiac Anatomy Left Ventricle/Interventricular Septum The left ventricular size is normal. Left ventricular wall thickness is normal. The LV systolic function is normal . The left ventricular ejection fraction is 55-60 %. No obvious wall motion abnormalities seen on limited views. Left Atrium/Interatrial Septum The left atrium is normal in size. Aortic Valve The aortic valve leaflet opening is normal . There is no aortic stenosis. There is trace aortic regurgitation. Mitral Valve There is moderate mitral annular calcification. There is mild mitral regurgitation. Aorta The aortic root is normal in size. Right Ventricle The right ventricular size and function appears grossly normal. Right Atrium The right atrium is normal in size. Pulmonic Valve The pulmonic valve velocity is normal. There is trace pulmonic regurgitation. Tricuspid Valve There is trace tricuspid valve regurgitation. Pumonary Artery The pulmonary artery systolic pressure estimation is 32 mmHg. Venous Structures The inferior vena cava appears grossly normal. Inferior vena cava inspiratory collapse is normal . Pericardium/Extracardiac There is no significant pericardial effusion. Summary The left ventricular size is normal. Left ventricular wall thickness is normal. The LV systolic function is normal . The left ventricular ejection fraction is 55-60 %. No obvious wall motion abnormalities seen on limited views. There is moderate mitral annular calcification. There is mild mitral regurgitation. The right ventricular size and function appears grossly normal. The pulmonary artery systolic pressure estimation is 32 mmHg. Comparison No prior study available for comparison. Signature * Event Display: Echocardiogram - Complete Authored Date: Note * Micheal Shepard: PERFORM Event Display: Discharge/Transfer Note Hospital Authored Date: Nursing Discharge Note Entered On: 04/13/2022 12:17 EST Performed On: 04/13/2022 12:16 EST by Micheal Shepard Nursing Discharge Note 2 Discharge Time : 04/13/2022 13:48 EST Micheal Shepard - 04/13/2022 13:48 EST Discharge Level of Care at Discharge : halfway facility Discharge Nursing Homes/Rehab Facilities : [facility] Patient Left Unit Via : Ambulatory Patient Accompanied Off Unit with : Ambulance/Chair Van Personnel Handover Given to Transport Personnel : Yes DC Instructions Provided & Signed by Pt : Unable Patient Understands D/C Instructions : Unable Micheal Shepard - 04/13/2022 12:16 EST Patient Instructions Discharge Signed : No Micheal Shepard - 04/13/2022 13:48 EST Did Pt have Specialty Bed or Wound Vac : No Micheal Shepard - 04/13/2022 12:16 EST * Jr CLEMENTE, Hernando Andrade: PERFORM Event Display: Discharge/Transfer Note Hospital Authored Date: Patient: ??CHERISE YAEL ? Age:??66 Years?Sex:??Male?:??1955?? Patient Information Discharge Location: S2 Primary Care Physician: Not on Staff, PCP Admit Date/Time: 04/01/22 10:48 Discharge Disposition Discharge Disposition: Prison Facility/Rehab Discharge Diagnosis Altered mental status (R41.82) Neurocognitive disorder (R41.9) Pulmonary embolism (I26.99) Schizoaffective disorder (F25.9) Dementia with behavioral disturbance ?? _ Discharge Medications Acetaminophen (acetaminophen 325 mg oral tablet)?650?Milligram?2?tablet?By Mouth?Every 6 hours?as needed?as needed for fever/pain apixaban (Eliquis 5 mg oral tablet)?1?tab(s)?5?Milligram?By Mouth?2 times a day Docusate-Senna (docusate-senna 50 mg-187 mg oral tablet)?1?tab(s)?By Mouth?2 times a day?as needed?Constipation Durable Medical Equipment (Glucagon Emergency Kit)?1?Milligram?Intramuscular?once?asneeded?as needed Glucose (Glutose 15 oral gel)?15?gram?By Mouth?Once?as needed?as needed Methyl Salicylate-Menthol Topical (Muscle Rub)?Apply?Topically?2 times a day?as needed?Pain?to shoulders Milk of Magnesia?30?Milliliter?By Mouth?Daily at bedtime?as needed?as needed for constipation?400MG/5MLif no BM in 6 shifts Miscellaneous Rx (Castile Soap Enema)?1?Each?Rectally?Once?as needed?Constipation Miscellaneous Rx (Ensure Liquid Vanilla)?237?Milliliter?By Mouth?3 times a day Polyethylene Glycol 3350 (MiraLax oral powder for reconstitution)?17?gram?By Mouth?Daily?dissolve in water before taking Risperidone (RisperDAL 0.25 mg oral tablet)?0.25?Milligram?1?tablet?By Mouth?2 times a day Selenium Sulfide Topical (selenium sulfide 2.25% topical shampoo)?Topically?Shampoo to scalp twice weekly Senna (Senna 8.6 mg oral tablet)?8.6?Milligram?1?tab(s)?By Mouth?2 times a day?9am, 6pm Sodium Biphosphate-Sodium Phosphate (Fleet Enema 19 gm-7 gm rectal enema)?1?Each?Rectally?Once?as needed?for constipation ? Medications Discontinued -Clonazepam -Escitalopram -Reubens -Trazodone Hospital Course ? 66-year-old gentleman with??medical history of anoxic brain injury, schizoaffective disorder, dementia with behavioral disturbance, chronic pain syndrome, insomnia, Parkinson's disease, rln-yfqhxsq-unrokcxoc diabetes with neuropathy, COPD, PE on Eliquis, previous tobacco use, hypertension and anemia who was admitted to [facility] in late January for intertrochanteric right hip fracture and prior to that in early January for metabolic encephalopathy in the setting of pneumonia comesto the emergency room via EMS for lethargy and unresponsiveness.?? Has had similar lethargic and unr esponsive episodes before with??unremarkable examinations??and investigations. Patient has been admitted for evaluation and management of acute encephalopathy, lethargy.?Seen by psych team???deemed to be due to underlying psychiatric conditions, neurocognitive disorder??and likely??polypharmacy side effects. Medication changes made,??on risperidone only, needs outpatient psych close follow-up Remained calm and cooperative 48 hours prior to DC ? Altered mental status Major neurocognitive disorder Schizoaffective disorder Intermittent Hyperactive?? and Hypoactive delirium Patient presenting??altered,??unresponsive and lethargic,??it resolved post presentation to the ER however??happened again after he was given lithium escitalopram as well as risperidone. Has had this happen previous admissions as well The cause of his lethargy/poor responsiveness might be related to polypharmacy versus catatonia versus other psychiatric differential Renal function WNL, liver function WNL, no history of toxic ingestions, alcohol use/drug use. Patient did not respond??to Narcan given by ED. CT head is unremarkable. Patient is afebrile, no leukocytosis,??no lactic acidosis, doubt infectious encephalopathy Patient had a similar presentation in January at which time, thiamine B12 as well as TSH were done which were all WNL He was on lithium, risperidone, citalopram,??clonazepam as well as trazodone.? He has had a couple of episodes of??lethargy??being minimally responsive to painful stimuli???work-up has been unremarkable including ABG.?? This presentation was thought to be similar to multiple prior presentation??concerned about psychiatric behavioral problem versus medication side effect Patient??closely followed by psychiatry and was started on Ativan for concern of catatonia However??on 04/06 ??had episode of extreme agitation ? related to ativan which was d/c Since he has had issues with either extreme agitation??and then at times becomes very lethargic Started on low-dose Risperdal.?Patient was evaluated by psychiatry 04/12 and at this time recommended to continue just on Risperdal??and have his outpatient provider assess the other medication ?? Risperdal to 0.25 twice daily??with holding??parameter for lethargy Psych recommended that his outpatient psychiatrist should evaluate him and decide??regarding??resuming lithium and rest of his home meds 48 hours prior to discharge remained calm and cooperative ?? Concern for Pulmonary edema (resolved):?? Chest x-ray showed?? pulmonary edema (resolved), euvolemic on exam He is not in any obvious respiratory distress,??proBNP is not elevated.?? Renal function, albumin stable. HsTNT not significant for ACS. Echo normal EF and no structural disease ?? Pulmonary embolism Diagnosed of PE in late February of this year, on Eliquis.?? Continue Eliquis ?? Telemetry artifact Overnight 04/05??concerns about V. fib/V. tach, on exam patient was at his known unresponsive baseline Consulted cardiology for further evaluation, they reviewed telemetry and agree that presenting rhythm was more artifact. Echocardiogram was normal with no evidence of structural disease. ? Dispo - Has had Episodes of severe agitation and then lethargy.?All attributed to??neurocognitive disorder and schizoaffective disorder.?? Needs outpatient psychiatry ongoing follow-up.?? Should not be transferred back to the hospital unless these episodes are associated with??any red flags suchas focal neurological problems,??abnormal oxygenation,??blood pressure or vital abnormalities. Objective Measurements?? Weight: 76.2 kg (04/13/22) ?? Vital Signs?? Temperature: 98.1 DegF (04/13/22 05:00:00) Temperature Route: Oral (04/13/22 05:00:00) Pulse Rate: 72 bpm (04/13/22 05:00:00) Respiratory Rate: 18 br/min (04/13/22 05:00:00) Systolic Blood Pressure: 130 mm Hg (04/13/22 05:00:00) Diastolic Blood Pressure:??98 mm Hg??High (04/13/22 05:00:00) Blood pressure sites: Arm, left (04/13/22 05:00:00) Mean Arterial Pressure: 86 mm Hg (04/12/22 17:01:00) Pulse Pressure: 32 mm Hg (04/13/22 05:00:00) Oxygen Saturation: 96 % (04/13/22 05:00:00) Mode of Delivery (Oxygen): Room air (04/13/22 05:00:00) Early Warning Score: 0 (04/13/22 08:22:23) ? . Physical Exam ? General???sitting up in the bed, no acute distress Respiratory???no wheezing Cardiovascular???normal heart sounds GI???abdomen soft, bowel sound present Neuro-??? awake alert oriented to self only.?? Follows simple commands appropriately Derm???face with seborrheic dermatitis Pending Results COVID-19 (2018 Novel Coronavirus) PCR ordered on 04/04/2022 COVID-19 (2018 Novel Coronavirus) PCR ordered on 04/07/2022 Patient Education Titles Altered Level of Consciousness?? Follow-Up Appointments Added Follow Up ?Time Frame ?Comments As Needed Patient Instructions -Admitted to the hospital due to unresponsiveness, this was all felt to be due to multiple psychiatric medications. ??Multiple such episodes before. -During??your hospital stay??different episodes of??sometimes confusion??and??agitation and sometimes unresponsiveness and lethargic.?? This is all due to your known psychiatric conditions and neurocognitive disorder.?? No medical cause was found for these problems. -The psychiatry doctors adjusted medications, discontinued modest antipsychotic medications and recommended continuing risperidone only for now. -Follow-up will be needed with the outpatient psychiatrist Post Discharge Care Diet: Regular Diet Activity: As tolerated Code Status: ?? Full Resuscitation Condition: Stable Prognosis: Fair Discharge ?04/13/22 11:03:00 EST Discharge Prescriptions ?None, ??04/13/22 11:03:00 EST Home Health Face to Face ^HomeHealthFTF Results Discharge Labs BLOOD COUNT & DIFF WBC 7.7 k/mm3 ()?? 04/06/2022 01:35 RBC 3.83 m/mm3 (Low)?? 04/06/2022 01:35 Hgb 11.0 Gm/dL (Low)?? 04/06/2022 01:35 Hct 37.0 % (Low)?? 04/06/2022 01:35 MCV 96.6 femtoliters (High)?? 04/06/2022 01:35 MCH 28.7 pg ()?? 04/06/2022 01:35 MCHC 29.7 g/dL (Low)?? 04/06/2022 01:35 Platelet Count 233 k/mm3 ()?? 04/06/2022 01:35 RDW-SD 54.8 femtoliters (High)?? 04/06/2022 01:35 MPV 10.3 femtoliters ()?? 04/06/2022 01:35 Nucleated RBC (Automated) 0.0 #/100 WBC'S ()?? 04/06/2022 01:35 Abs. NRBC 0.0 k/mm3 ()?? 04/06/2022 01:35 Abs. Neut 5.1 k/mm3 ()?? 03/30/2022 10:37 Abs. Lymph 2.1 k/mm3 ()?? 03/30/2022 10:37 Abs. [place] 0.5 k/mm3 ()?? 03/30/2022 10:37 Abs. Eo 0.3 k/mm3 ()?? 03/30/2022 10:37 Abs. Baso 0.0 k/mm3 ()?? 03/30/2022 10:37 Neut % 63.4 % ()?? 03/30/2022 10:37 Lymph % 26.4 % ()?? 03/30/2022 10:37 [place] % 5.8 % ()?? 03/30/2022 10:37 Eos % 3.7 % ()?? 03/30/2022 10:37 Baso % 0.5 % ()?? 03/30/2022 10:37 Hemoglobin (POC) POC Cartridge 11.2 Gm/dL (Low)?? 04/05/2022 03:47 Hematocrit (POC) POC Cartridge 33 % (Low)?? 04/05/2022 03:47 Imm Gran 0.2 % ()?? 03/30/2022 10:37 Abs. Imm Gran 0.0 k/mm3 ()?? 03/30/2022 10:37 ?? BLOOD GAS pH (POC) POC Cartridge 7.44 ()?? 04/05/2022 03:47 pCO2 (POC) POC Cartridge 34.2 mm Hg (Low)?? 04/05/2022 03:47 pO2 (POC) POC Cartridge 63 mm Hg (Low)?? 04/05/2022 03:47 Estimated Bicarbonate (POC) POC Cart 23.2 mmol/L ()?? 04/05/2022 03:47 % O2 Sat Arterial (POC) POC Cartridge 93 % (Low)?? 04/05/2022 03:47 Base Excess (POC) POC Cartridge NEGATIVE 1 ()?? 04/05/2022 03:47 pH 7.41 ()?? 04/04/2022 09:43 pCO2 38 mm Hg ()?? 04/04/2022 09:43 pO2 76 mm Hg (Low)?? 04/04/2022 09:43 Bicarbonate, Estimated 24 mmol/L ()?? 04/04/2022 09:43 Specimen Type - Blood Gas ARTERIAL ()?? 04/05/2022 03:47 Percent O2 (FIO2) 21 ()?? 04/04/2022 09:43 ?? CARDIAC Nt-Probnp 92 pg/mL ()?? 03/30/2022 10:37 High Sensitivity Troponin (HSTnT) 17 ng/L ()?? 03/31/2022 03:00 ?? CHEM GENERAL Sodium 141 mmol/L ()?? 04/06/2022 01:35 Potassium 4.1 mmol/L ()?? 04/06/2022 01:35 Chloride 108 mmol/L (High)?? 04/06/2022 01:35 Bicarbonate Level 25 mmol/L ()?? 04/06/2022 01:35 Anion Gap 8 ()?? 04/06/2022 01:35 Sodium (POC) POC Cartridge 140 mmol/L ()?? 04/05/2022 03:47 Potassium (POC) POC Cartridge 3.7 mmol/L ()?? 04/05/2022 03:47 Glucose Level 112 mg/dL (High)?? 04/06/2022 01:35 Glucose (POC) POC Cartridge 114 (High)?? 04/05/2022 03:47 Glucose, POC 118 mg/dL (High)?? 04/13/2022 08:20 BUN 21 mg/dL ()?? 04/06/2022 01:35 Creatinine-Blood 1.0 mg/dL ()?? 04/06/2022 01:35 Estimated GFR Creatinine 81 ML/MIN/1.73 M2 ()?? 04/06/2022 01:35 Calcium 9.4 mg/dL ()?? 04/03/2022 08:57 Ionized Calcium (POC) POC Cartridge 1.26 mmol/L ()?? 04/05/2022 03:47 Magnesium 2.2 mg/dL ()?? 04/05/2022 00:38 Protein, Total 6.6 Gm/dL ()?? 03/30/2022 10:37 Albumin 3.7 Gm/dL ()?? 03/30/2022 10:37 AG Ratio 1.3 ()?? 03/30/2022 10:37 Alkaline Phosphatase 160 units/L (High)?? 03/30/2022 10:37 Lipase 44 units/L ()?? 03/30/2022 10:37 AST (SGOT) 13 units/L ()?? 03/30/2022 10:37 ALT (SGPT) 8 units/L ()?? 03/30/2022 10:37 Bilirubin, Total 0.3 mg/dL ()?? 03/30/2022 10:37 Lactate 0.7 mmol/L ()?? 04/05/2022 00:38 ? ENDOCRINE/TUMOR MARKER TSH 2.85 uIU/mL ()?? 03/30/2022 10:37 ? TOXICOLOGY/TDM Reubens Level 0.2 mmol/L (Low)?? 04/02/2022 01:28 ? UA/URINALYSIS Appear/Color, Urine LIGHT YELLOW ()?? 03/30/2022 14:50 Specific [place], Urine 1.019 ()?? 03/30/2022 14:50 pH, Urine 6.5 ()?? 03/30/2022 14:50 Albumin, Urine NEGATIVE ()?? 03/30/2022 14:50 Glucose, Urine NEGATIVE ()?? 03/30/2022 14:50 Ketones, Urine NEGATIVE ()?? 03/30/2022 14:50 Bilirubin, Urine NEGATIVE ()?? 03/30/2022 14:50 Hemoglobin, Urine NEGATIVE ()?? 03/30/2022 14:50 Nitrite, Urine NEGATIVE ()?? 03/30/2022 14:50 Leukocyte, Urine NEGATIVE ()?? 03/30/2022 14:50 Urobilinogen NORMAL mg/dL ()?? 03/30/2022 14:50 WBC's, Urine 1 /HPF ()?? 03/30/2022 14:50 RBC's, Urine 1 /HPF ()?? 03/30/2022 14:50 Bacteria SLIGHT HPF (Abnormal)?? 03/30/2022 14:50 Squamous Epith <1 /HPF ()?? 03/30/2022 14:50 Mucus SLIGHT /LPF ()?? 03/30/2022 14:50 Hold Urine Culture Testing available 48 hours from time of collection. ()?? 03/30/2022 14:50 ? VIROLOGY COVID-19 by RT-PCR NEGATIVE ()?? 04/13/2022 09:40 COVID-19 PCR Specimen Source NASAL ()?? 04/11/2022 05:26 COVID-19 PCR Result NEGATIVE ()?? 04/11/2022 05:26 ? Microbiology ?? Blood Culture?? Completed?? Source: Blood Body Site: ?? Collected Dt/Tm: 03/30/2022 10:23 Last Updated Dt/Tm: 03/30/2022 10:23 ?SPECIMEN DESCRIPTION : BLOOD RT ARMSPECIAL REQUESTS : NONECULTURE : NO GROWTH 5 DAYS.REPORT STATUS : FINAL 04/04/2022 Blood Culture #2?? Completed?? Source: Blood Body Site: ?? Collected Dt/Tm: 03/30/2022 10:23 Last Updated Dt/Tm: 03/30/2022 10:23 ?SPECIMEN DESCRIPTION : BLOOD LHANDSPECIAL REQUESTS : NONECULTURE : NO GROWTH 5 DAYS.REPORT STATUS : FINAL 04/04/2022 COVID-19 (2019 Novel Coronavirus) PCR?? Completed?? Source: Nasal Body Site: Nose Collected Dt/Tm: 04/11/2022 05:28 Last Updated Dt/Tm: 04/11/2022 13:17 ? Imaging(s) ?CT Head/Brain W/O Contrast ?? 03/30/2022 10:57??by Kiko Finn MD ?1. No acute intracranial abnormality. ?? 2. No skull fracture. 3. Mild sinus disease. ?Echocardiogram - Complete ?? 04/05/2022 09:50??by Tyree Ibarra MD ?The left ventricular size is normal. Left ventricular wall thickness is ??normal. The LV systolic function is normal . The left ventricular ejection ??fraction is 55-60 %. No obvious wall motion abnormalities seen on limited ??views. ??There is moderate mitral annular calcification. There is mild mitral ??regurgitation. ??The right ventricular size and function appears grossly normal. ??The pulmonary artery systolic pressure estimation is 32 mmHg. ? 45_ minutes spent on discharge * Gely Cobos RN: PERFORM, SIGN, VERIFY Event Display: Case Management Discharge Plan Authored Date: [id number] Patient: YAEL LUONG Age: 66 years Sex: Male : 1955 Associated Diagnoses: None Author: Gely Cobos RN Discharge Plan Case Management Discharge Plan : Case Management Discharge Plan Data 04/13/2022 10:14 EST Discharge Level of Care at Discharge halfway facility Discharge Nursing Homes/Rehab Facilities [facility] Discharge Transportation Arranged [facility] [address] [place] [phone] Discharge Arranged Transport Date/Time 04/13/2022 13:00 Mode of Transportation Arranged Ambulance Name of Agency #1 [facility] Service Categories #1 Prison Additional Info for D/C Instructions You are being transfered back to [facility] at 1 PM. An ambulance will come and pick you up and bring you there. Your Guardian Jean was updatedand aware of you d/c plan. * Micheal Shepard: PERFORM Event Display: Patient Education/Instruction Authored Date: Inpatient Adult Discharge Instructions [address] [address] Name: YAEL LUONG : 1955 Visit: 04/01/2022 10:48:00 Current Date: 04/13/2022 12:18 Account: [id number] Inpatient Adult Discharge Instructions We would like to thank you for allowing us to assist you with your healthcare needs. The following includes patient education materials and information regarding your injury/illness. Our entire staffstrives to provide an excellent experience for our patients and their families. PLEASE ENSURE YOU FOLLOW-UP PER THE INSTRUCTIONS BELOW! ?? YOUR OPINION IS IMPORTANT TO US! Please complete the survey you may receive by mail or email. Your feedback will be used to make improvements to the healthcare experiences of our patients and their families. Surveys are administered by [employer] ?? If further treatment with your primary care physician or another doctor is recommended, it is important for you to keep the appointment. Call your primary care physician or return to the Emergency Department immediately if your condition worsens, fails to improve, or new symptoms develop. If you need to find a doctor, you can call [facility] for a referral at [phone] or toll free at [phone] or log in to [email or web address] ?? You can view and manage your care through the patient portal or by using a health care emily of your choosing. [employer] is a website that allows you to securely view your medical information including your hospital discharge summary, office visit summaries, medications and follow-up visits. You can also request appointments, renew medications, and request access to your medical information using a health care emily of your choosing, or just ask a question. You can enroll at [email or web address] or register during your next office visit. You have been discharged from [facility], Patient Care Unit: S2. If you have any questions regarding these instructions after you leave, please call us and we will be happy to assist you. [facility] Your Care Team Attending Physician Hernando Norris MD Consulting Providers Kanika Washington MD Discharging Providers Hernando Norris MD Reason for Admission ems was at facility for transport to orthopedic apt. when ems found pt was unresponsive Your Diagnosis Altered mental status Pulmonary edema Altered mental status Pulmonary embolism Schizoaffective disorder Neurocognitive disorder Tests Performed Below is a partial list of the tests performed during your hospitalization. You may have had other tests and procedures not included in this list. Please discuss all test results with your provider. ABG ABG POC CARTRIDGE BASE EXCESS POC CARTRIDGE Basic Metabolic Panel BUN CALCIUM IONIZED POC CART Calcium Level CBC CBC w/ Differential Comprehensive Metabolic Panel COVID-19 (2019 Novel Coronavirus) PCR COVID-19 (NOVEL CORONAVIRUS), PCR Creatinine Electrolytes Glucose Level GLUCOSE POC GLUCOSE POC CARTRIDGE HEMATOCRIT POC CARTRIDGE HEMOGLOBIN POC CARTRIDGE High??Sensitivity??Troponin T Lactate Level Lactic Acid Level Lipase Reubens Level Magnesium Level Mg Level POTASSIUM POC CARTRIDGE ProBNP SODIUM POC CARTRIDGE Troponin T, High Sensitivity TSH with T4 Reflex (Adults Only) Urinalysis w/hold for Urine Culture CT Head/Brain W/O Contrast CXR Portable Primary Care Provider Not on Staff, PCP Advance Directive Health Care Proxy on File No Patient refuses to discuss No qualifying data available. Discharge Vitals Temperature: 97.6 DegF Weight: 76.2 kg Pulse Rate: 63 bpm ?? Respiratory Rate: 18 br/min ?? Systolic Blood Pressure: 110 mm Hg ?? Diastolic Blood Pressure: 61 mm Hg ?? Oxygen Saturation: 98 % ?? Studies Pending All tests and labs ordered during this hospital stay have been completed unless listed below. Please discuss all pending results with your provider listed above in these instructions. ?? COVID-19 (2019 Novel Coronavirus) PCR What to do next Instructions From Your Doctor -Admitted to the hospital due to unresponsiveness, this was all felt to be due to multiple psychiatric medications. ??Multiple such episodes before. -During??your hospital stay??different episodes of??sometimes confusion??and??agitation and sometimes unresponsiveness and lethargic.?? This is all due to your known psychiatric conditions and neurocognitive disorder.?? No medical cause was found for these problems. -The psychiatry doctors adjusted medications, discontinued modest antipsychotic medications and recommended continuing risperidone only for now. -Follow-up will be needed with the outpatient psychiatrist Discharge Orders Diet:??Regular Diet Activity:??As tolerated Code Status:?? Full Resuscitation Condition:??Stable Prognosis:??Fair You Need to Schedule the Following Appointments Follow Up with??As Needed When?? Discharge Medications YAEL LUONG :1955 Visit Date:04/01/2022 Medications: Please continue your medications until treatment is completed or stopped by your provider. Medications not listed below should be discontinued. Discuss any questions related to medications with your provider. What How Much When Instructions Next Dose Changed Acetaminophen (acetaminophen 325 mg oral tablet) 2 tab(s) Oral Every 6 hours as needed for as needed for fever/pain As needed Changed Risperidone (RisperDAL 0.25 mg oral tablet) 1 tab(s) Oral Twice a day 04/13/22 9pm Unchanged apixaban (Eliquis 5 mg oral tablet) 1 tab(s) Oral Twice a day 04/13/22 9pm Unchanged Docusate-Senna (docusate-senna 50 mg-187 mg oral tablet) 1 tab(s) Oral Twice a day as needed for Constipation As needed Unchanged Durable Medical Equipment (Glucagon Emergency Kit) 1 Milligram Intramuscular Once as needed for as needed As needed Unchanged Glucose (Glutose 15 oral gel) 15 gram Oral Once as needed for as needed As needed Unchanged Methyl Salicylate-Menthol Topical (Muscle Rub) Apply Topically Twice a day as needed for Pain to shoulders ?? As needed Unchanged Milk of Magnesia 30 Milliliter Oral Daily at Bedtime as needed for as needed for constipation 400MG/ 5ML if no BM in 6 shifts ?? As needed Unchanged Miscellaneous Rx (Castile Soap Enema) 1 Each Per rectum Once as needed for Constipation As needed Unchanged Miscellaneous Rx (Ensure Liquid Vanilla) 237 Milliliter Oral 3 times a day 04/13/22 5pm Unchanged Polyethylene Glycol 3350 (MiraLax oral powder for reconstitution) 17 gram Oral Daily dissolve in water before taking ?? 04/14/22 9am Unchanged Selenium Sulfide Topical (selenium sulfide 2.25% topical shampoo) Topically Shampoo to scalp twice weekly ?? per schedule Unchanged Senna (Senna 8.6 mg oral tablet) 1 tab(s) Oral Twice a day 9am, 6pm ?? 04/13/22 9pm Unchanged Sodium Biphosphate-Sodium Phosphate (Fleet Enema 19 gm-7 gm rectal enema) 1 Each Per rectum Once as needed for for constipation Once as needed ?? What How Much When Comments Stop Taking Bisacodyl (bisacodyl 10 mg rectal suppository) 1 suppository(ies) Per rectum Daily as needed for for constipation if no result from MOM ?? Stop Taking Clonazepam (clonazePAM 0.5 mg oral tablet) 1 tab(s) Oral Twice a day Stop Taking Escitalopram (escitalopram 10 mg oral tablet) 1 tab(s) Oral Daily Stop Taking Reubens (lithium 450 mg oral tablet, extended release) 1 tab(s) Oral Twice a day Stop Taking nalOXONE (Narcan 4 mg/ 0.1 mL nasal spray) 4 Milligram Naris, Left Once as needed for as needed Stop Taking nalOXONE (Narcan Inj) 0.1 Milligram IV Push Slowly Once as needed for as needed Stop Taking Trazodone (traZODone 150 mg oral tablet) 0.5 tab(s) Oral Daily at Bedtime Test Results Below is a partial list of the most recent Laboratory test results done prior to this discharge. You may have had other tests and procedures not included in this list. Please discuss all test resultswith your provider. ABG (04/04/2022) ???pH - 7.41???pCO2 - 38 mm Hg???pO2 - 76 mm Hg???Bicarbonate, Estimated - 24 mmol/L???Specimen Type - Blood Gas - ARTERIAL???Percent O2 (FIO2) - 21 ABG POC CARTRIDGE (04/05/2022) ???pH (POC) POC Cartridge - 7.44???pCO2 (POC) POC Cartridge - 34.2 mm Hg???pO2 (POC) POC Cartridge - 63 mm Hg???Estimated Bicarbonate (POC) POC Cart - 23.2 mmol/L???% O2 Sat Arterial (POC) POC Cartridge - 93 %???Specimen Type - Blood Gas - ARTERIAL BASE EXCESS POC CARTRIDGE (04/05/2022) ???Base Excess (POC) POC Cartridge - NEGATIVE 1 Basic Metabolic Panel (04/03/2022) ???Sodium - 141 mmol/L???Potassium - 4.3 mmol/L???Chloride - 106 mmol/L???Bicarbonate Level - 26 mmol/L???Anion Gap - 9???Glucose Level - 114 mg/dL???BUN - 24 mg/dL???Creatinine-Blood - 1.0 mg/dL???Estimated GFR Creatinine - 85 ML/MIN/1.73 M2???Calcium - 9.4 mg/dL BUN (04/06/2022) ???BUN - 21 mg/dL CALCIUM IONIZED POC CART (04/05/2022) ???Ionized Calcium (POC) POC Cartridge - 1.26 mmol/L Calcium Level (03/31/2022) ???Calcium - 9.1 mg/dL CBC (04/06/2022) ???WBC - 7.7 k/mm3???RBC - 3.83 m/mm3???Hgb - 11.0 Gm/dL???Hct - 37.0 %???MCV - 96.6 femtoliters???MCH - 28.7 pg???MCHC - 29.7 g/dL???Platelet Count - 233 k/mm3???RDW-SD - 54.8 femtoliters???MPV - 10.3 femtoliters???Nucleated RBC (Automated) - 0.0 #/100 WBC'S???Abs. NRBC - 0.0 k/mm3 CBC w/ Differential (03/30/2022) ???WBC - 8.1 k/mm3???RBC - 4.05 m/mm3???Hgb - 11.9 Gm/dL???Hct - 38.5 %???MCV - 95.1 femtoliters???MCH - 29.4 pg???MCHC - 30.9 g/dL???Platelet Count - 232 k/mm3???RDW-SD - 53.8 femtoliters???MPV - 9.7 femtoliters???Nucleated RBC (Automated) - 0.0 #/100 WBC'S???Abs. NRBC - 0.0 k/mm3???Abs. Neut - 5.1 k/mm3???Abs. Lymph - 2.1 k/mm3???Abs. [place] - 0.5 k/mm3???Abs. Eo - 0.3 k/mm3???Abs. Baso - 0.0 k/mm3???Neut % - 63.4 %???Lymph % - 26.4 %???[place] % - 5.8 %???Eos % - 3.7 %???Baso % - 0.5 %???Imm Gran- 0.2 %???Abs. Imm Gran - 0.0 k/mm3 Comprehensive Metabolic Panel (03/30/2022) ???Sodium - 140 mmol/L???Potassium - 4.0 mmol/L???Chloride - 106 mmol/L???Bicarbonate Level - 25 mmol/L???Anion Gap - 9???Glucose Level - 121 mg/dL???BUN - 17 mg/dL???Creatinine-Blood - 0.9 mg/dL???Estimated GFR Creatinine - 94 ML/MIN/1.73 M2???Calcium - 9.1 mg/dL???Protein, Total - 6.6 Gm/dL???Albumin - 3.7 Gm/dL???AG Ratio - 1.3???Alkaline Phosphatase - 160 units/L???AST (SGOT) - 13 units/L???ALT (SGPT) - 8 units/L???Bilirubin, Total - 0.3 mg/dL COVID-19 (2019 Novel Coronavirus) PCR (04/11/2022) ???COVID-19 PCR Specimen Source - NASAL???COVID-19 PCR Result - NEGATIVE COVID-19 (NOVEL CORONAVIRUS), PCR (04/13/2022) ???COVID-19 by RT-PCR - NEGATIVE Creatinine (04/06/2022) ???Creatinine-Blood - 1.0 mg/dL???Estimated GFR Creatinine - 81 ML/MIN/1.73 M2 Electrolytes (04/06/2022) ???Sodium - 141 mmol/L???Potassium - 4.1 mmol/L???Chloride - 108 mmol/L???Bicarbonate Level - 25 mmol/L???Anion Gap - 8 Glucose Level (04/06/2022) ???Glucose Level - 112 mg/dL GLUCOSE POC (04/13/2022) ???Glucose, POC - 118 mg/dL GLUCOSE POC CARTRIDGE (04/05/2022) ???Glucose (POC) POC Cartridge - 114 HEMATOCRIT POC CARTRIDGE (04/05/2022) ???Hematocrit (POC) POC Cartridge - 33 % HEMOGLOBIN POC CARTRIDGE (04/05/2022) ???Hemoglobin (POC) POC Cartridge - 11.2 Gm/dL High??Sensitivity??Troponin T (03/30/2022) ???High Sensitivity Troponin (HSTnT) - 18 ng/L Lactate Level (03/30/2022) ???Lactate - 1.3 mmol/L Lactic Acid Level (04/05/2022) ???Lactate - 0.7 mmol/L Lipase (03/30/2022) ???Lipase - 44 units/L Reubens Level (04/02/2022) ???Reubens Level - 0.2 mmol/L Magnesium Level (04/05/2022) ???Magnesium - 2.2 mg/dL Mg Level (04/03/2022) ???Magnesium - 2.3 mg/dL POTASSIUM POC CARTRIDGE (04/05/2022) ???Potassium (POC) POC Cartridge - 3.7 mmol/L ProBNP (03/30/2022) ???Nt-Probnp - 92 pg/mL SODIUM POC CARTRIDGE (04/05/2022) ???Sodium (POC) POC Cartridge - 140 mmol/L Troponin T, High Sensitivity (03/31/2022) ???High Sensitivity Troponin (HSTnT) - 17 ng/L TSH with T4 Reflex (Adults Only) (03/30/2022) ???TSH - 2.85 uIU/mL Urinalysis w/hold for Urine Culture (03/30/2022) ???Appear/Color, Urine - LIGHT YELLOW???Specific [place], Urine - 1.019???pH, Urine - 6.5???Albumin, Urine - NEGATIVE???Glucose, Urine - NEGATIVE???Ketones, Urine - NEGATIVE???Bilirubin, Urine - NEGATIVE???Hemoglobin, Urine - NEGATIVE???Nitrite, Urine - NEGATIVE???Leukocyte, Urine - NEGATIVE???Urobi linogen - NORMAL???WBC's, Urine - 1 /HPF???RBC's, Urine - 1 /HPF???Bacteria - SLIGHT???Squamous Epith - <1 /HPF? ?Mucus - SLIGHT? ?Hold Urine Culture - Testing available 48 hours from time of collection. Immunizations This Visit Not Given Vaccine Commentsinfluenza virus vaccine, inactivated Patient Refuses Patient states I don't want that Allergies (NKA means No Known Allergies) NKA Problems Active Problems??(4) Altered mental status?? Anemia?? COPD without exacerbation?? Dementia with behavioral disturbance?? Education Materials Below is the list of Educational Leaflet Providered with your Discharge Instructions. Altered Level of Consciousness?? Valuables and Belongings I fully understand and agree that [facility] accepts no responsibility for all my personal property including clothing, toilet articles, radios, jewelry, dentures, hearing aids, rings, money, or any other property that is in my possession or is brought to me after admission. I understand certain valuables may be placed in a hospital safe for a short period of time. I understand that the hospital is not liable for loss or damage due to accident, fire, or other natural occurrence while said property is in the safe. I accept full responsibility for any personal property that I keep with me, and will not hold the hospital responsible in case of loss or disappearance. I acknowledge that i have been encouraged to send valuables and belongings home. ?? No Valuables/Belongings: No valuables/belongings present Review of Valuable and Belonging List: With patient Possessions released to: No medical devices Date for Pt to Sign Valuables/Belongings: 04/13/22 11:29:00 ?? Other Discharge Information ? Case Management Discharge Plan?? Discharge Plan?? Discharge Agency Information?? Discharge Level of Care at Discharge: halfway facility Name of Agency #1: [facility] Discharge Transportation Arranged: [facility] [address] [facility] [id number] [phone] Service Categories #1: Prison Mode of Transportation Arranged: Ambulance Additional Info for D/C Instructions: [facility] An ambulance will come and pick you up and bring you there. Your Guardian Jean was updated and aware of you d/c plan. Discharge Arranged Transport Date/Time: 04/13/22 13:00:00 ?? Discharge Nursing Homes/Rehab Facilities: [facility] ? Pulmonary Rehab Status?? Pulmonary Rehab Discharge Status?? Respiratory Rate: 18 br/min ? Common Emergency Awareness Tips IS IT A STROKE? Act FAST and Check for these signs: FACE Does the face look uneven? ARM Does one arm drift down? SPEECH Does their speech sound strange? TIME Call at any sign of stroke ?? Heart Attack Signs Chest discomfort: Most heart attacks involve discomfort in the center of the chest and lasts more than a few minutes, or goes away and comes back. It can feel like uncomfortable pressure, squeezing, fullness or pain. Discomfort in upper body: Symptoms can include pain or discomfort in one or both arms, back, neck, jaw or stomach. Shortness of breath: With or without discomfort. Other signs: Breaking out in a cold sweat, nausea, or lightheaded. Remember, MINUTES DO MATTER. If you experience any of these heart attack warning signs, call to get immediate medical attention! ?? Smoking can increase your chances of developing chronic health problems and can cause harmful effects to other family members in your house. If you smoke, you are strongly encouraged to quit. Please call [facility] at [phone] or [phone] ([phone]) or log in to [email or web address] for referrals to smoking cessation programs. ?? The National Suicide Prevention Hotline is available 14/11 if you or someone you know needs to find a reason to keep living. By calling 2-109-191-BAROnova (0966) you'll be connected to a skilled, trained counselor at a crisis center in your area. INPATIENT DISCHARGE INSTRUCTIONS SIGNATURE PAGE YAEL LUONG Location:[facility] Registration Date and Time:04/01/2022 10:48 EST Primary Care Physician: Not on Staff, PCP I YAEL LUONG, have received the above patient education materials/instructions and have verbalized understanding. If ambulance or transport services are being used I further acknowledge being given a choice of service. ?? If you need to contact me, please call me at this number: . Patient/Lead Javascript Engineer Name: Patient/Lead Javascript Engineer Signature: Relationship to Patient: Witness Name/Signature: Date: * Jr CLEMENTE, Hernando Andrade: PERFORM Event Display: Patient Education Leaflets Authored Date: Altered Level of Consciousness ?? [id number] Altered Level of Consciousness Level of consciousness (LOC) is a measure of a person???s ability to interact with other people andto react to what is around them. A person with an altered level of consciousness may not respond totouch or voices. They??may look vacant or blank. They may not make eye contact with others. The person??may be limp and may not move for a long time. Or they may??show little interest in moving. They may also be confused. There are many causes of altered LOC. They include low blood sugar, infection, medicines, head injuries, seizures,??stroke, and being intoxicated.. Altered LOC is a medical emergency. The healthcare provider will do tests to help find the cause. These may include blood tests and imaging tests. The person is treated so breathing and heart rate are stable. An IV (intravenous) line may be put into a vein in the arm or hand to give medicines. Oncethe cause of altered LOC is found, the goal is to treat the cause. In almost all cases, the person will be admitted to the hospital for diagnostic testing and??observation. Some less common conditions, such as locked-in syndrome and akinetic mutism, seem like a??coma.??But the person??is perfectly awake. Home care When your loved one is released from the hospital, you will be given guidelines for caring for them. In general: ??? Follow the healthcare provider's instructions for giving any prescribed medicines to your child. ??? Stay with your loved one or have another responsible adult look after them. Watchcarefully for any return of symptoms or changes in behavior. ??? If the person has diabetes, make sure that any approved medicines are given on time and as prescribed. ?? Follow-up care Follow up with your??healthcare provider, or our staff as advised. ?? When to seek medical advice Call your??healthcare provider right away if new symptoms appear. ?? Call 911 Call 911 or get medical care right away??if symptoms of altered LOC return. ?? Last Reviewed Date: 2021 ?? [id number] The [employer]. All rights reserved. This information is not intended as a substitute for professional medical care. Always follow your healthcare professional's instructions. ?? * Event Display: Cardiac Rhythm Strips Authored Date: * Event Display: Cardiac Rhythm Strips Authored Date: * Micheal Shepard: PERFORM Event Display: Discharge/Transfer Note Hospital Authored Date: Discharge Planning Nursing Entered On: 04/03/2022 12:09 EST Performed On: 04/03/2022 8:00 EST by Micheal Shepard Discharge Planning Nursing Anticipated discharge : halfway facility Micheal Shepard - 04/03/2022 12:09 EST * Event Display: Provider Clarification Note Please click on pdf link to open report Hospital Progress note * Stephani Parra RN: MODIFY, SIGN, MODIFY, SIGN, PERFORM, SIGN, VERIFY Event Display: Progress Note Hospital Authored Date: Patient: YAEL LUONG Age: 66 years Sex: Male : 1955 Associated Diagnoses: None Author: Stephani Parra RN Findings Narrative/Incidental Patient is alert and oriented to self, able to communicate needs. Denies chest pain or shortness ofbreath. I having good PO intake and voiding adequately. Patient resting in bed at this time. Safetychecks completed, bed in lowest position, bed alarm on, Call mills within reach. See biophysical assessment. Will continue to monitor. Pt discharge to [facility] at this time. . * Zina Snider RN: PERFORM, SIGN, VERIFY Event Display: Progress Note Hospital Authored Date: Patient: YAEL LUONG Age: 66 years Sex: Male : 1955 Associated Diagnoses: None Author: Zina Snider RN Findings Problem Related to Alteration in Neurological : Alteration in Neurological Function/new 04/12/2022 21:00 EST Alteration in Neuro status Related to Other: AMS Goals & Outcomes, Neurological Pt is safe with transfers & activities, Pt will be hemodynamically stable, Pt will be Neurologically stable, Pt will become pain free with appropriate intervention, Pt will maintain intact skin integrity, Pt will remain free from injury, Pt will resume/maintain adequate cardiac output, Pt will state importance of adhering to medication regime, Pt/caregiver will receive psychosocial support as needed, Pt/caregiver will state understanding of rehab plan, Pt/caregiver will state strategies to reduce risk factors, Pt/caregiver will state understanding aspiration precautions, Pt/caregiver will state understanding dietary modifications, Pt/caregiver will state understanding of disease process, Pt/caregiver will state understanding of plan/goals of care Interventions, Neurological Assess/monitor neurologic status, Assess/monitor VS per unit standards & prn, Physical assessment per unit standards, Teach pt/caregiver on plan of care, treatment, s/s & meds, Teach pt/caregiver on use of pain scale BH Goals/Interventions, Neurological Yes Neurological, Problem Start 04/02/2022 5:56 Reviewed plan with, Neurological Patient Patient Progression, Neurological Pt progressing according to plan . Evaluation Patient is alert to self, VSS. Patient following simple commands. Patient c/o right knee/thigh pain, refusing Tylenol at this time. Patient voiding in urinal and incontinent at times. Patient impulsive at times, attempting to get OOB, patient is redirectable. Patient sleeping at this time. Call mills within reach and bed alarm on for safety. Will continue to monitor and report changes.. * Evi Singh LPN: PERFORM, SIGN, VERIFY Event Display: Progress Note Hospital Authored Date: Patient: YAEL LUONG Age: 66 years Sex: Male : 1955 Associated Diagnoses: None Author: Evi Singh LPN Findings Nursing Data Vital Signs : VITAL SIGNS SECTION 04/12/2022 17:01 EST Temperature 97.7 DegF Temperature Route Oral Pulse Rate 65 bpm Respiratory Rate 18 br/min Systolic Blood Pressure 129 mm Hg Diastolic Blood Pressure 64 mm Hg Blood pressure sites Arm, right Mean Arterial Pressure 86 mm Hg Pulse Pressure 65 mm Hg Oxygen Saturation 98 % Mode of Delivery (Oxygen) Room air . Narrative/Incidental Patient is alert and oriented x1. Breathing freely on room air. Complains of pain in knee this morning. PRN tylenol administered with positive effect. Scheduled medications administered as ordered. Currently resting in bed. Call mills in reach. Safety measures and hourly rounding in place. See biophys and cis for more information. . Portable XR Chest Views * [facility] , CIS S: TRANSCRIToni Bishop MD: VERIFY Event Display: Result: Authored Date: [id number] Chest Portable Reason: Shortness of Breath; Clinical Question(s): Pneumonia COMPARISON: Chest radiographs dated March 30, 2022. FINDINGS: LINES AND TUBES: None. LUNGS AND PLEURA: Irregular opacity in the right lung apex corresponds with subpleural scarring on the recent chest CT. Normal pulmonary vascularity with resolution of previously seen edema. No pleural effusion. No pneumothorax. HEART, MEDIASTINUM AND RAN: Heart is normal in size. Normal mediastinal and hilar contour. BONES AND SOFT TISSUES: No acute abnormality. IMPRESSION: No acute abnormality. WSN: [id number] Ordering Physician: Tonya Asencio Dictated By: Toni Sosa MD Dictated Date/Time: 04/05/22 8:49 am Reviewed By: Toni Sosa MD Signed By: Toni Sosa MD Signed Date/Time: 04/05/22 8:49 am Transcribed By: MARLA Transcribed Date/Time: 04/05/22 8:46 am * [facility] , CIS S: TRANSCRIOpal Prescott MD: VERIFY Event Display: Result: Authored Date: [id number] Chest Portable Hx of Present Illness: see level 1 sheet; Reason: COPD; Clinical Question(s): CHF COMPARISON: Radiograph of the chest dated 01/27/2022. FINDINGS: LINES AND TUBES: None. LUNGS AND PLEURA: Increased interstitial markings with fluid tracking along the right horizontal fissure, consistent with pulmonary edema. There is increased prominence of pulmonary vasculature. No pleural effusion. No pneumothorax. HEART, MEDIASTINUM AND RAN: Unchanged cardiomediastinal silhouette. BONES AND SOFT TISSUES: No acute abnormality. IMPRESSION: Findings are consistent with moderate pulmonary edema. WSN: [id number] Ordering Physician: Sher Gamble Dictated By: Opal Delatorre MD Dictated Date/Time: 03/30/22 12:40 p Reviewed By: Opal Delatorre MD Signed By: Opal Delatorre MD Signed Date/Time: 03/30/22 12:40 pm Transcribed By: MARLA Transcribed Date/Time: 03/30/22 12:[address] Head WO contrast * [facility]SP[facility] , CIS S: TRANSCRIBE Kiko Finn MD: VERIFY Event Display: Result: Authored Date: [id number] CT Head/Brain W/O Contrast CLINICAL INDICATION: Reason: Dementia; Clinical Question(s): Subarachnoid Hemorrhage; Order Comment:. PRIOR EXAMS: 02/09/2022. TECHNIQUE: Head CT was performed without intravenous contrast, using axial technique and reconstructed in axial and coronal plane. Iterative reconstruction techniques are used to optimize dose and image quality. CTDIvol Head: 47.90 mGy, DLP Head: 966 mGy*cm. FINDINGS: BRAIN: There is no infarct. There is no intracerebral hemorrhage. There is no mass. VENTRICLES, SULCI, AND CISTERNS: The ventricles and sulci are symmetrical and show atrophic change greater than expected for age.. WHITE MATTER: Minimal white matter abnormality. EXTRA AXIAL SPACES: There is no abnormal epidural, subdural, or subarachnoid blood or fluid. SKULL: There is no skull fracture.. PARANASAL SINUSES: Small amount of fluid right maxillary sinus. Retention cyst left maxillary sinus.. TEMPORAL BONES: The mastoid air cells are clear, as are the middle ear cavities. IMPRESSION: 1. No acute intracranial abnormality. 2. No skull fracture. 3. Mild sinus disease. WSN: [id number] Ordering Physician: Sher Gamble Dictated By: Kiko Finn MD Dictated Date/Time: 03/30/22 11:52 a Reviewed By: Kiko Finn MD Signed By: Kiko Finn MD Signed Date/Time: 03/30/22 11:52 am Transcribed By: MARLA Transcribed Date/Time: 03/30/22 11:47 am Patient Care team information Care Team Personnel Name: Germaine Naidu RN Position: S RN Member Role: Primary Care Nurse Name: Camelia Amaro RN Position: S RN Member Role: Primary Care Nurse Name: Barbara Ventura RN Position: [facility] RN Member Role: Primary Care Nurse Name: Chrystal Stein RN Position: [facility] RN Member Role: Primary Care Nurse Name: Not on Staff, PCP Position: [facility] Physician (General Medicine) Member Role: PCP Name: Haylee Mckee RN Position: [facility] RN Member Role: Primary Care Nurse Name: Marina Pierre RN Position: [facility] RN Member Role: Primary Care Nurse Name: Naresh Cardona RN Position: [facility] RN Member Role: Primary Care Nurse Name: Garima Mcdaniel RN Position: [facility] RN Member Role: Primary Care Nurse Name: Mariely Vang RN Position: [facility] RN Member Role: Primary Care Nurse Name: Delmis Vang RN Position: [facility] RN Member Role: Primary Care Nurse Name: Sirena Wilson Position: [facility] RN Member Role: Primary Care Nurse Name: Megan MAYORGA Attending Position: [facility] ED Medicine MD Name: Beth White Position: [facility] ED TA [facility] Member Role: Wastewater Project Manager Name: Kathryn Espinoza RN Position: [facility] ED RN W/OE and Tasks Member Role: Patient Care Provider Name: Lucy Caba Position: [facility] ED OA Charge Member Role: ED Associate Care Team Related Persons Name: JEAN LUONG Address: [place] [address]
--- OUTSIDE RECORDS SUMMARY | 2022-08-01 17:01 | XMS_ITS | Continuity of Care Document ---
Author Name Unknown Organization [facility] ter Address [address] [place] [id number]- Care Team Providers Care Plaster Form Maker Name Role Phone Not on Staff, PCP Primary Care Physician Unavail able Encounter [facility] Date(s): 01/27/22 - 02/04/[address] [address]- Encounter Diagnosis Altered mental state(Final) - 01/27/22 Hypoxia(Final) - 01/27/22 Pneumonia(Final) - 01/27/22 Discharge Disposition: A-Transfer SNF Attending Physician: April CLEMENTE, Seth Admitting Physician: Pastora CLEMENTE, Nelda Referring Physician: Not on Staff, Referring MD Allergies, Adverse Reactions, Alerts No Known Allergies Immunizations Given and Recorded Vaccine Date Status Refusal Reason influenza virus vaccine, inactivated 03/01/21 Meir rded influenza virus vaccine, inactivated 05/20/15 Meir rded SARS-CoV-2 (COVID-19) mRNA BNT-162b2 vac 04/25/20 Recorded pneumococcal 23-valent vaccine 05/20/15 Recorded Medications Acetaminophen 160 mg / 5 mL [...] 1 tablet = 1 mg, By Mouth, 3 times a day, PRN Agitation, 0 Refills, Maintenance, 02/04/22 16:18:00 EDT, Tablet, Partial fill upon patient request if the prescription is for a schedule II opioid drug. Start Date: 02/04/22 Status: Ordered Depo-Provera Contraceptive 150 mg/mL intramuscular [...] opioid drug. Start Date: 02/04/22 Status: Ordered escitalopram 10 mg oral tablet 1 tablet = 10 mg, By Mouth, Daily, Maintenance, 11/03/20 10:12:00 EDT, Tablet, ; Start Date: 11/03/20 Status: Ordered lithium 450 mg oral tablet, extended release 1 tablet = 450 mg, By Mouth, 2 times a day, 9am, 7pm, # 180 tablet, 0 Refills, Maintenance, 01/27/22 [...] 1, tablet, By Mouth, Daily at bedtime, PRN, Refills 0, Maintenance, Insomnia, 02/04/22 16:19:00 EDT, Partial fill upon patient request if the prescription is for a schedule II opioid drug. Start Date: 02/04/22 Status: Ordered ZyPREXA 2.5 mg oral tablet 2.5 mg, 1, tablet, By Mouth, 2 times a day, PRN, Refills 0, Maintenance, Agitation, 02/04/22 16:19:00 EDT, Partial fill upon patient request if the prescription is for a schedule II opioid drug. Start Date: 02/04/22 Status: Ordered Results Radiology Reports * Exam Date Time Procedure Performing Provider Status 01/27/22 12:06 PM Chest Portable Brisa Christine; True (Verified) Notes: (Chest Portable) Reason For Exam: Cough RESULT: Chest Portable Chest Portable Hx of Present Illness: Pt coming from SNF. Pt found this morning around 0815 to have AMS R facial droop. LKW approx. 2200 last night. ED FAST3; Reason: Cough; Clinical Question(s): Pneumonia COMPARISON: 08/28/2021 FINDINGS: LINES AND TUBES: None. LUNGS AND PLEURA: There is suboptimal inspiration. The patient is also slightly rotated. Clear lungs. Normal pulmonary vascularity. No pleural effusion. No pneumothorax. HEART, MEDIASTINUM AND RAN: Heart is normal in size. Normal mediastinal and hilar contour. BONES AND SOFT TISSUES: No acute abnormality. IMPRESSION: Slightly limited study. No acute abnormality. WSN: [id number] Ordering Physician: Judy Horner Dictated By: Jermaine Martinez MD Dictated Date/Time: 01/27/22 12:13 p Reviewed By: Jermaine Martinez MD Signed By: Jermaine Martinez MD Signed Date/Time: 01/27/22 12:13 pm Transcribed By: MARLA Transcribed Date/Time: 01/27/22 12:12 pm Vital Signs Most recent to oldest [Reference Range]: 1 2 3 Oxygen Saturation [94-100 %] 94 % (02/04/22 3:38 PM) 96 % (02/04/22 7:32 AM) 99 % (02/03/22 11:26 PM) Pulse Rate [55-90 bpm] 62 bpm (02/04/22 3:38 PM) 55 bpm (02/04/22 7:32 AM) 61 bpm (02/03/22 11:26 PM) Blood Pressure [90-138/55-84 mm Hg] 120/64mm Hg (02/04/22 3:38 PM) 116/64mm Hg (02/04/22 7:32 AM) 124/60mm Hg (02/03/22 11:26 PM) Respiratory Rate [16-30 br/min] 18 br/min (02/04/22 3:38 PM) 18 br/min (02/04/22 7:32 AM) 18 br/min (02/03/22 11:26 PM) Temperature [96.8-100.4 DegF] 98.6 DegF (02/04/22 3:38 PM) 97.8 DegF (02/04/22 7:32 AM) 97.9 DegF (02/03/22 11:26 PM) Liters per Minute 2.5 L/min (02/04/22 7:32 AM) 2 L/min (02/03/22 11:26 PM) 1 L/min (02/01/22 11:00 PM) Mode of Delivery (Oxygen) Room air (02/04/22 3:38 PM) Nasal cannula (02/04/22 7:32 AM) Nasal cannula (02/03/22 11:26 PM) Blood pressure sites Arm, left (02/04/22 3:38 PM) Arm, left (02/04/22 7:32 AM) Arm, left (02/03/22 11:26 PM) Temperature Route Oral (02/04/22 3:38 PM) Oral (02/04/22 7:32 AM) Oral (02/03/22 11:26 PM) Portable XR Chest Views * [facility]SPowers[facility] , CIS S: TRANSCRIBE Jermaine Martinez MD: VERIFY Event Display: Result: Authored Date: Chest Portable Hx of Present Illness: Pt coming from SNF. Pt found this morning around 0815 to have AMS R facial droop. LKW approx. 2200 last night. ED FAST3; Reason: Cough; Clinical Question(s): Pneumonia COMPARISON: 08/28/2021 FINDINGS: LINES AND TUBES: None. LUNGS AND PLEURA: There is suboptimal inspiration. The patient is also slightly rotated. Clear lungs. Normal pulmonary vascularity. No pleural effusion. No pneumothorax. HEART, MEDIASTINUM AND RAN: Heart is normal in size. Normal mediastinal and hilar contour. BONES AND SOFT TISSUES: No acute abnormality. IMPRESSION: Slightly limited study. No acute abnormality. WSN: [id number] Ordering Physician: Judy Horner Dictated By: Jermaine Martinez MD Dictated Date/Time: 01/27/22 12:13 p Reviewed By: Jermaine Martinez MD Signed By: Jermaine Martinez MD Signed Date/Time: 01/27/22 12:13 pm Transcribed By: MARLA Transcribed Date/Time: 01/27/22 12:12 pm Patient Care team information Personnel Name: Not on Staff, PCP
--- OUTSIDE RECORDS SUMMARY | 2022-08-01 17:01 | XMS_ITS | Continuity of Care Document ---
Author Name Unknown Organization [facility] ter Address [address] [place] [address]- Care Team Providers Care Burling And Joining Supervisor Name Role Phone Mingo CLEMENTE, Brenton Estevez Primary Care Physician [phone] [place] [facility] [place] [id number] Date(s): 11/02/20 - 11/03/[address] [address]- Discharge Disposition: A-D/C Home Attending Physician: Marii Paulson MD Admitting Physician: Marii Paulson MD Referring Physician: Not on Staff, Referring MD Allergies, Adverse Reactions, Alerts Substance Reaction Severity Status NKA Active Medications Acetaminophen 160 mg / 5 mL [...] EDT, ; Start Date: 11/03/20 Status: Ordered Vital Signs Most recent to oldest [Reference Range]: 1 2 3 Oxygen Saturation [94-100 %] 97 % (11/03/20 4:24 PM) 96 % (11/03/20 11:21 AM) 100 % (11/03/20 6:43 AM) Pulse Rate [55-90 bpm] 79 bpm (11/03/20 4:24 PM) 64 bpm (11/03/20 11:21 AM) 63 bpm (11/03/20 6:43 AM) Blood Pressure [90-138/55-84 mm Hg] 147/83mm Hg *H* (11/03/20 4:24 PM) 123/50mm Hg (11/03/20 11:21 AM) 126/55mm Hg (11/03/20 6:43 AM) Respiratory Rate [16-30 br/min] 17 br/min (11/03/20 4:24 PM) 16 br/min (11/03/20 11:21 AM) 16 br/min (11/03/20 6:43 AM) Temperature [96.8-100.4 DegF] 98.3 DegF (11/03/20 4:24 PM) 98.3 DegF (11/03/20 11:21 AM) 98.3 DegF (11/02/20 7:58 PM) Mode of Delivery (Oxygen) Room air (11/03/20 4:24 PM) Room air (11/03/20 11:21 AM) Room air (11/03/20 6:43 AM) Blood pressure sites Arm, right (11/03/20 4:24 PM) Arm, right (11/03/20 11:21 AM) Arm, right (11/03/20 6:43 AM) Temperature Route Oral (11/03/20 4:24 PM) Oral (11/03/20 11:21 AM) Oral (11/02/20 7:58 PM)
[2022-08-01 17:18] LABS: MANUAL DIFF FLAG NO
[2022-08-01 17:21] LABS: Basophils Percent Auto 0.3 % (0-2); Eosinophils Absolute Auto 0.1 X10*3/uL (0.0-0.4); Eosinophils Percent Auto 1.2 % (0-4); Hematocrit 38.6 % (42.0-52.0); Hemoglobin 12.1 g/dl (14.0-18.0); Imm Gran Abs Auto 0.02 X10*3/uL (0.00-0.03); Imm Gran Pct Auto 0.2 % (0.0-0.4); Lymphocytes Absolute Auto 1.4 X10*3/uL (1.2-4.9); Lymphocytes Percent Auto 15.3 % (20-40); Mean Corpuscular HGB Conc 31.3 g/dl (31.0-36.0); Mean Corpuscular Hemoglobin 28.5 pg (27.0-33.0); Mean Corpuscular Volume 90.8 fL (80.0-98.0); Mean Platelet Volume 9.3 fL (9.4-12.4); Monocytes Absolute Auto 0.7 X10*3/uL (0.1-1.2); Monocytes Percent Auto 7.8 % (2-11); Neutrophils Absolute Auto 6.8 x10*3/uL (2.0-8.3); Neutrophils Percent Auto 75.2 % (45-73); Platelet Count 196 X10*3/uL (160-400); Red Blood Count 4.25 X10*6/uL (4.60-5.80); Red Cell Distribution Width 15.7 % (11.0-16.0)
[2022-08-01 17:35] LABS: COVID-19 Test Negative (Negative); IDNOW Serial# 08D9AD1C
[2022-08-01 17:40] LABS: Alanine Aminotransferase 6 U/L (0-40); Albumin Level 3.5 g/dL (3.5-5.0); Alkaline Phosphatase 106 U/L (39-117); Anion Gap 12 (12-20); Aspartate Amino Transferase 9 U/L (5-37); Bilirubin Total 0.4 mg/dL (0.0-1.0); Blood Urea Nitrogen 14 mg/dL (9-16); Calcium 8.9 mg/dL (8.4-10.2); Carbon Dioxide 23 mmol/L (22-29); Chloride 111 mmol/L (96-108); Creatinine Clr Calc Pharmacy 80.3; Estimated Glomerular Filt Rate > 60; Ethanol < 10 mg/dL; Glucose Random 109 mg/dL (60-115); Potassium 3.8 mmol/L (3.3-5.1); Sodium 142 mmol/L (135-145); Total Protein 6.1 g/dL (6.5-8.0)
[2022-08-01 17:54] LABS: TSH reflex Free T4 1.75 uIU/mL (0.32-4.0)
--- NOTE | 2022-08-01 18:47 | PHA.MEDREC ---
Pharmacy Consult ? Medication Reconciliation Pharmacy has completed the medication reconciliation. Patient had list from [facility].
[2022-08-01 19:27] VITALS: BP 129/63; PULSE 59; RESP 16; O2SAT 99
[2022-08-01 20:51] LABS: Appearance Urine Cloudy; Color Urine Yellow; Glucose Urine UA Negative (Negative); Leukocyte Esterase Urine Trace (Negative); Nitrite Urine Negative (Negative); PH 6.5 (5.0-9.0); UMIC TRIGGER UACC YES; Urine Blood Negative (Negative); Urine Ketones Negative (Negative); Urine Protein Trace mg/dL (Neg-Trace)
[2022-08-01 20:55] LABS: Bacteria Urine None Seen (None Seen); RBC Urine 0-2 /HPF (0-2); Squamous Epithelial Cell Urine 0-2 /HPF (0-2); WBC Urine 0-5 /HPF (0-5)
[2022-08-01 21:02] LABS: Amphetamine Screen Urine Not Detected (Not Detect); Barbiturates, Urine Not Detected (Not Detect); Benzodiazepines Screen Urine Not Detected (Not Detect); Cannabinoid Screen Urine Not Detected (Not Detect); Cocaine Screen Urine Not Detected (Not Detect); Fentanyl, urine Not Detected (Not Detect); Opiate Screen Urine Not Detected (Not Detect); Phencyclidine Screen Urine Not Detected (Not Detect)
[2022-08-01 22:28] VITALS: BP 132/62; PULSE 62; RESP 18; O2SAT 97
[2022-08-02] VITALS (7 sets, daily range): BP systolic 126–141; BP diastolic 53–72; PULSE 50–72; RESP 14–17; TEMP 36.5–36.8; O2SAT 96–99
--- NOTE | 2022-08-02 10:08 | PC.NURSE ---
pt changed over to hospital attire, minimal amount of urinary incontinence noted. pt resisting linen change, but redirectable. pt minimally verbally responsive, responding in one word sentences. doesnt appear in obvious distress. sts pain to back. redness noted to upper right buttock during linen change, blanchable. pt repostioning self to l and r side interchangeably. vss. awaiting psych consult. wctm.
--- NOTE | 2022-08-02 14:09 | P.CNPS_ITS ---
History of Present Illness Date of Service: 08/02/22 Chief Complaint: AGGRESSIVE BEHAVIOR FROM SNF PER EMS HPI Narrative: Mr. 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 Patient has remained calm in the ED without any behavioral problems. Prior to hypoxic brain injury patient was fully functional. Bladder Cleaner spoke with patient's sister who reports that pt at baseline, patient is pretty similar to current presentation, not oriented and sleepy. She says there is no clear reason for episodic bouts of agitation. At baseline sister says patient is normally hard to wake up; for months he will be lethargic, with little energy, just lying there. About 4 months ago, She was worried he was being over-sedated and asked if his Lexapro could be lowered wondering if that was a cause. He got somewhat combative but even when medications were put back to regular dose he remained intermittently combative. She reflects and says that this aggressive combative behavior seems to happen about twice a year regardless of medication changes. She is beginning to wonder if these combative episodes are just a part of some kind of cycle for him or if there is some staffing interactions that intermittently happens since other than these 2 times a year, patient remains at baseline. She is becoming doubtful that these episodes are connected to any medication changes Past Psychiatric History: No history of psychotic illness Medical Evaluation Reviewed: Yes Diagnostics Vital Signs (24Hr): Vital Signs - 24 hr 08/01/22 16:36 08/01/22 19:27 08/01/22 22:28 Temperature Pulse Rate 100 59 62 Respiratory Rate 20 16 18 Blood Pressure 139/73 129/63 132/62 Pulse Oximetry 96 99 97 Oxygen Delivery Method Room Air Room Air Room Air 08/02/22 00:45 08/02/22 02:56 08/02/22 05:04 Temperature Pulse Rate 55 59 50 Respiratory Rate 17 17 16 Blood Pressure 131/72 141/72 H 126/58 L Pulse Oximetry 99 98 98 Oxygen Delivery Method Room Air Room Air Room Air 08/02/22 06:04 08/02/22 08:03 08/02/22 14:08 Temperature 98.2 F 97.8 F Pulse Rate 54 53 59 Respiratory Rate 15 16 14 Blood Pressure 130/57 L 129/53 L 128/71 Pulse Oximetry 97 97 98 Oxygen Delivery Method Room Air Room Air Room Air BMI result Body Mass Index 27.1 Labs 08/01/22 17:14 08/01/22 17:14 Labs: Laboratory Results - last 48 hr 08/01/22 08/01/22 08/01/22 17:14 17:14 17:14 WBC 9.0 RBC 4.25 L Hgb 12.1 L Hct 38.6 L MCV 90.8 MCH 28.5 MCHC 31.3 RDW 15.7 Plt Count 196 MPV 9.3 L Immature Gran % (Auto) 0.2 Neut % (Auto) 75.2 H Lymph % (Auto) 15.3 L [place] % (Auto) 7.8 Eos % (Auto) 1.2 Baso % (Auto) 0.3 Lymph # (Auto) 1.4 [place] # (Auto) 0.7 Eos # (Auto) 0.1 Baso # (Auto) 0.0 Abs Immat Gran (auto) 0.02 Absolute Neuts (auto) 6.8 Absolute Nucleated RBC 0.000 Nucleated RBC % (auto) 0.0 Sodium 142 Potassium 3.8 Chloride 111 H Carbon Dioxide 23 Anion Gap 12 BUN 14 Creatinine 1.02 Estim Creat Clear Calc 80.3 Estimated GFR > 60 Random Glucose 109 Calcium 8.9 Total Bilirubin 0.4 AST 9 ALT 6 Alkaline Phosphatase 106 Total Protein 6.1 L Albumin 3.5 TSH 1.75 Urine Color Urine Appearance Urine pH Ur Specific [place] Urine Protein Urine Glucose (UA) Urine Ketones Urine Blood Urine Nitrite Ur Leukocyte Esterase Urine RBC Urine WBC Ur Squamous Epith Cells Urine Bacteria Hyaline Casts Urine Opiates Screen Urine Fentanyl Screen Ur Barbiturates Screen Ur Phencyclidine Scrn Ur Amphetamines Screen U Benzodiazepines Scrn Urine Cocaine Screen U Marijuana (THC) Screen Ethyl Alcohol < 10 COVID-19 (CHAMP) Negative COVID-19 Clin Com See Note 08/01/22 08/01/22 20:44 20:44 WBC RBC Hgb Hct MCV MCH MCHC RDW Plt Count MPV Immature Gran % (Auto) Neut % (Auto) Lymph % (Auto) [place] % (Auto) Eos % (Auto) Baso % (Auto) Lymph # (Auto) [place] # (Auto) Eos # (Auto) Baso # (Auto) Abs Immat Gran (auto) Absolute Neuts (auto) Absolute Nucleated RBC Nucleated RBC % (auto) Sodium Potassium Chloride Carbon Dioxide Anion Gap BUN Creatinine Estim Creat Clear Calc Estimated GFR Random Glucose Calcium Total Bilirubin AST ALT Alkaline Phosphatase Total Protein Albumin TSH Urine Color Yellow Urine Appearance Cloudy Urine pH 6.5 Ur Specific [place] 1.020 Urine Protein Trace Urine Glucose (UA) Negative Urine Ketones Negative Urine Blood Negative Urine Nitrite Negative Ur Leukocyte Esterase Trace H Urine RBC 0-2 Urine WBC 0-5 Ur Squamous Epith Cells 0-2 Urine Bacteria None Seen Hyaline Casts 3-5 Urine Opiates Screen Not Detected Urine Fentanyl Screen Not Detected Ur Barbiturates Screen Not Detected Ur Phencyclidine Scrn Not Detected Ur Amphetamines Screen Not Detected U Benzodiazepines Scrn Not Detected Urine Cocaine Screen Not Detected U Marijuana (THC) Screen Not Detected Ethyl Alcohol COVID-19 ([facility]AMP) COVID-19 Clin Com Mental Status Exam Mental Status Exam Narrative: Appearance: disheleved, in NAD Behavior: calm Psychomotor: no agitation or retardation noted Speech: spontaneous TP: goal oriented TC: no SI/HI Mood: good Affect: calm AH/VH: no signs of responding to internal stimuli Delusions: no signs of delusional content noted or reported. Insight/judgment: impaired Medications Medications Current Medications Pharmacy Consult (Consult Rx Perform Med Rec) 1 each MISCELLANE ONCE PRN PRN Reason: Consult order Pharmacy Consult (Consult Rx Perform Med Rec) 1 each MISCELLANE ONCE PRN PRN Reason: Consult order Allergies Allergies Allergy/AdvReac Type Severity Reaction Status Date / Time No Known Allergies Allergy Verified 08/01/22 16:49 Assessment & Plan Assessment & Plan (1) Mood disorder as late effect of traumatic brain injury: Status: Acute Code(s): F06.30 - Mood disorder due to known physiological condition, unspecified; S06.9XAS - Unspecified intracranial injury with loss of consciousness status unknown, sequela Plan Mr. Wyatt is a 66 year-old male with hx of MS, hypoxic brain injury with significant cognitive impairments as result who resides at [facility] since March 2022 who presents disoriented and not a reliable historian. Patient has remained calm in the ED without any behavioral problems. -according to sister, patient is now presenting at his baseline; she is skeptical that his episodic combative behaviors have anything to do with medication changes. -this point, given patient's calm behavior that is reportedly baseline for him, typewriter tester is not inclined to recommend any further medication changes. Total time managing care of this patient today ____ minutes.
--- NOTE | 2022-08-02 14:27 | PC.NURSE ---
pt woke up from sleeping/lethargy all day and able to talk in 1-3 word sentences. pt verbalized need to void and was assisted with the urinal. when checked the bed, it was incontinent of urine from a previous void. full linen change without resistance. pt verbalized hunger and tolerated 1:1 feeding. ate entirety of meal and drank liquids without difficulty. pt now resting quietly in stretcher, watching tv. vss. wctm
--- NOTE | 2022-08-02 16:31 | MHC.CARE ---
CARE Team spoke to patient in ED bed 22, he was awake and alert, pleasant, made eye contact, affect flat, appeared frail and unkempt. Stated he did not know why he was here and it was explained that he needs a medications changed and could then return to [facility], he nodded in understanding though likely did not. Per staff, patient has been calm, ate his meals with help and able to make his needs known. From facility records I was unclear who patient?s psychiatric provider is and [facility] confirmed that it is Dr. Sheets. Patient will remain in the ED until [facility] psychiatric provider collaborates with patient?s team and makes recommendations for medication adjustment.
[2022-08-02] MEDS: Apixaban 5 MG TABLET PO (20:59)
[2022-08-02] MEDS: Sennosides 8.6 MG TABLET PO (20:59)
[2022-08-02] MEDS: Lithium Carbonate 300 MG TABLET 450 MG PO (20:59)
[2022-08-02] MEDS: risperiDONE 0.25 MG TABLET PO (21:59)
[2022-08-03] VITALS (7 sets, daily range): BP systolic 111–174; BP diastolic 60–79; PULSE 62–93; RESP 15–17; TEMP 36.4–36.7; O2SAT 95–100
--- NOTE | 2022-08-03 | ECG_ITS ---
Test Reason : QTC PROLONGATION Blood Pressure : / mmHG Vent. Rate : 071 BPM Atrial Rate : 071 BPM P-R Int : 172 ms QRS Dur : 080 ms QT Int : 400 ms P-R-T Axes : 086 032 069 degrees QTc Int : 434 ms Normal sinus rhythm Nonspecific T wave abnormality Abnormal ECG No previous ECGs available Referred By: Magnolia Lanza Electronically Signed By:ROXY CARVER MD
[2022-08-03] MEDS: Lithium Carbonate 300 MG TABLET 450 MG PO (09:18)
[2022-08-03] MEDS: polyethylene glycoL 3350 17 GM POWD.PACK PO (09:18)
[2022-08-03] MEDS: Sennosides 8.6 MG TABLET PO (09:18)
[2022-08-03] MEDS: Apixaban 5 MG TABLET PO (09:19)
[2022-08-03] MEDS: Escitalopram Oxalate 10 MG TABLET PO (09:19)
[2022-08-03] MEDS: risperiDONE 0.25 MG TABLET PO (09:58)
--- NOTE | 2022-08-03 14:48 | PM.PSYCN ---
History of Present Illness Date of Service: 08/03/2022 Chief Complaint: AGGRESSIVE BEHAVIOR FROM SNF PER EMS Reason for Consult: combative behaviors. Discussed with referring provider: Yes Sources of Information: patient interviewed, chart reviewed and crisis/core team assessment reviewed HPI Narrative: Mr. 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 Pt was brought via EMS after [facility] called due to patient presenting as very combative, kicking staff and requiring number of police officers to transport him to [facility]. In the ED, pt presented as not oriented to situation, year, place. 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 Medical work up consisted of CMP which is unremarkable, CBC with normocytic anemia. Cr 1.02; BUN 14 creatinine clearance 80.3. TSH 1.75. UA with trace of leukocytes. Utox is negative. BAL negative. WIll add head CT and EKG. Per sister, pt at baseline is not oriented to place, year, month and his ability to retain new information is very poor. This happened after pt had WA and apparently a hypoxic brain injury 15 years ago. Per sister, pt does NOT have a hx of schizophrenia, nor hx of psychosis nor delusions. However, since pt had TBI pt has had periods of impulsive, and explosive behaviors which appear to be related to confusion and cognitive impairments- pt thinking he has to go somewhere else with no insight as to fact that he can't be on his own. Yesterday- per nursing documentation, pt appeared lethargic. Pt today has been alert, and awake. Pt is pleasant on approach. He reports he has been here for a few hours. He states he came here due to leg pain, which he states comes and goes. Pt reports he lives with his parents and when asked about [facility] and living in a facility, pt states that is not the case. Pt denies SI/HI. Pt does not remember being aggressive towards staff or anyone. He states year is 2013. He does recognize this place as being a hospital but does not know the name or city. Pt has not been aggresive today. Nor has required IM medications for combative behaviors. Past Psychiatric History: Inpatient: none prior Medical Evaluation Reviewed: Yes Diagnostics Vital Signs (24Hr): Vital Signs - 24 hr 08/02/22 19:21 08/03/22 01:19 08/03/22 03:22 Temperature 97.7 F 97.6 F 97.7 F Pulse Rate 72 93 76 Respiratory Rate 17 17 17 Blood Pressure 126/64 111/60 128/72 Pulse Oximetry 96 95 97 Oxygen Delivery Method Room Air Room Air Room Air 08/03/22 05:12 08/03/22 07:12 08/03/22 09:17 Temperature 98.1 F Pulse Rate 75 62 70 Respiratory Rate 16 16 15 Blood Pressure 136/79 160/71 H 148/77 H Pulse Oximetry 96 99 98 Oxygen Delivery Method Room Air Room Air Room Air 08/03/22 13:22 Temperature Pulse Rate 74 Respiratory Rate 16 Blood Pressure 174/70 H Pulse Oximetry 100 Oxygen Delivery Method Room Air BMI result Body Mass Index 27.1 Labs 08/01/22 17:14 08/01/22 17:14 Labs: Laboratory Results - last 48 hr 08/01/22 08/01/22 08/01/22 17:14 17:14 17:14 WBC 9.0 RBC 4.25 L Hgb 12.1 L Hct 38.6 L MCV 90.8 MCH 28.5 MCHC 31.3 RDW 15.7 Plt Count 196 MPV 9.3 L Immature Gran % (Auto) 0.2 Neut % (Auto) 75.2 H Lymph % (Auto) 15.3 L [place] % (Auto) 7.8 Eos % (Auto) 1.2 Baso % (Auto) 0.3 Lymph # (Auto) 1.4 [place] # (Auto) 0.7 Eos # (Auto) 0.1 Baso # (Auto) 0.0 Abs Immat Gran (auto) 0.02 Absolute Neuts (auto) 6.8 Absolute Nucleated RBC 0.000 Nucleated RBC % (auto) 0.0 Sodium 142 Potassium 3.8 Chloride 111 H Carbon Dioxide 23 Anion Gap 12 BUN 14 Creatinine 1.02 Estim Creat Clear Calc 80.3 Estimated GFR > 60 Random Glucose 109 Calcium 8.9 Total Bilirubin 0.4 AST 9 ALT 6 Alkaline Phosphatase 106 Total Protein 6.1 L Albumin 3.5 TSH 1.75 Urine Color Urine Appearance Urine pH Ur Specific [place] Urine Protein Urine Glucose (UA) Urine Ketones Urine Blood Urine Nitrite Ur Leukocyte Esterase Urine RBC Urine WBC Ur Squamous Epith Cells Urine Bacteria Hyaline Casts Urine Opiates Screen Urine Fentanyl Screen Ur Barbiturates Screen Ur Phencyclidine Scrn Ur Amphetamines Screen U Benzodiazepines Scrn Urine Cocaine Screen U Marijuana (THC) Screen Ethyl Alcohol < 10 COVID-19 ([facility]) Negative COVID-19 Clin Com See Note 08/01/22 08/01/22 20:44 20:44 WBC RBC Hgb Hct MCV MCH MCHC RDW Plt Count MPV Immature Gran % (Auto) Neut % (Auto) Lymph % (Auto) [place] % (Auto) Eos % (Auto) Baso % (Auto) Lymph # (Auto) [place] # (Auto) Eos # (Auto) Baso # (Auto) Abs Immat Gran (auto) Absolute Neuts (auto) Absolute Nucleated RBC Nucleated RBC % (auto) Sodium Potassium Chloride Carbon Dioxide Anion Gap BUN Creatinine Estim Creat Clear Calc Estimated GFR Random Glucose Calcium Total Bilirubin AST ALT Alkaline Phosphatase Total Protein Albumin TSH Urine Color Yellow Urine Appearance Cloudy Urine pH 6.5 Ur Specific [place] 1.020 Urine Protein Trace Urine Glucose (UA) Negative Urine Ketones Negative Urine Blood Negative Urine Nitrite Negative Ur Leukocyte Esterase Trace H Urine RBC 0-2 Urine WBC 0-5 Ur Squamous Epith Cells 0-2 Urine Bacteria None Seen Hyaline Casts 3-5 Urine Opiates Screen Not Detected Urine Fentanyl Screen Not Detected Ur Barbiturates Screen Not Detected Ur Phencyclidine Scrn Not Detected Ur Amphetamines Screen Not Detected U Benzodiazepines Scrn Not Detected Urine Cocaine Screen Not Detected U Marijuana (THC) Screen Not Detected Ethyl Alcohol COVID-19 ([facility]) COVID-19 Clin Com Mental Status Exam Mental Status Exam Narrative: Appearance: thin, disheleved, in NAD Behavior: pleasant Psychomotor: no agitation or retardation noted Speech: clear, normal rate/rhythm, volume, spontaneous TP: mostly linear/ some confabulation noted TC: feeling better that he reports less leg pain Mood: good Affect: congruent, somewhat constricted, non labile SI: denies HI: denies AH/VH: no signs of responding to internal stimuli Delusions: no signs of delusional content noted or reported. Insight/judgment: impaired x 2. Memory/cog: alert, not oriented to city, year, situation, unable to retain new information and does not know how long he has been here or what brought him here. Medications Medications Current Medications Acetaminophen (Acetaminophen 325 Mg Tablet) 650 mg PO Q6H PRN PRN Reason: Fever Or Pain Apixaban (Apixaban 5 Mg Tablet) 5 mg PO BID [facility] Last Admin: 08/03/22 09:19 Dose: 5 mg Bisacodyl (Bisacodyl 10 Mg Supp.Rect) 10 mg ND DAILY PRN PRN Reason: Constipation Clonazepam (Clonazepam 0.5 Mg Tablet) 0.5 mg PO TID PRN PRN Reason: Agitation Escitalopram Oxalate (Escitalopram Oxalate 10 Mg Tablet) 10 mg PO DAILY [facility] Last Admin: 08/03/22 09:19 Dose: 10 mg [place] Carbonate ([place] Carbonate 300 Mg Tablet) 450 mg PO BID [facility] Last Admin: 08/03/22 09:18 Dose: 450 mg Magnesium Hydroxide (Milk Of Magnesia 30 Ml Oral.Susp) 30 ml PO DAILY PRN PRN Reason: Constipation Naloxone HCl (Naloxone Hcl 0.4 Mg/Ml Vial) 0.4 mg IM Q2M PRN PRN Reason: Opioid Overdose Naloxone HCl (Naloxone Hcl Nasal 4 Mg [place]) 4 mg NOSTRILALT Q1M PRN PRN Reason: Opioid Overdose Non-Formulary Medication (Risperidone Microspheres) 50 mg IM Q14D [facility] Pharmacy Consult (Consult Rx Perform Med Rec) 1 each MISCELLANE ONCE PRN PRN Reason: Consult order Pharmacy Consult (Consult Rx Perform Med Rec) 1 each MISCELLANE ONCE PRN PRN Reason: Consult order Polyethylene Glycol (Polyethylene Glycol 3350 17 Gm Powd.Pack) 17 gm PO DAILY [facility] Last Admin: 08/03/22 09:18 Dose: 17 gm Risperidone (Risperidone 0.5 Mg Tablet) 0.5 mg PO BID PRN PRN Reason: Agitation Risperidone (Risperidone 0.25 Mg Tablet) 0.25 mg PO BID [facility] Last Admin: 08/03/22 09:58 Dose: 0.25 mg Senna (Sennosides 8.6 Mg Tablet) 8.6 mg PO BID [facility] Last Admin: 08/03/22 09:18 Dose: 8.6 mg Senna/Docusate Sodium (Sennosides/Docusate Sodium Tablet) 1 tab PO DAILY PRN PRN Reason: Constipation Allergies Allergies Allergy/AdvReac Type Severity Reaction Status Date / Time No Known Allergies Allergy Verified 08/01/22 16:49 Assessment & Plan Assessment & Plan (1) Mood disorder as late effect of traumatic brain injury: Status: Acute Code(s): F06.30 - Mood disorder due to known physiological condition, unspecified; S06.9XAS - Unspecified intracranial injury with loss of consciousness status unknown, sequela Plan Mr. Wyatt is a 66 year-old male with hx of severe cognitive impairments and mood disregulation secondary to anoxic injury when pt had WA 15 years ago. No hx of schizophrenia as reported on ED note. Nor hx of psychosis nor delusions. Per sister, Mercedes who is his guardian, reports at baseline his orientation is impaired and he struggles with retaining new information. Mercedes reports that pt has once or twice a year short lived episodes of explosive or combative behaviors in context of confusion. Medical work up is reassuring in that there is no signs of infection (afebrile, CBC with normal WBC), nor electrolyte abnormalities, liver/thyroid function wnl.UA- with trace of leukocytes, no culture reflex. Pending head CT- but no focal neurological findings on exam. Pt has not been aggressive nor combative since he came to the ED. Pending lithium level tomorrow in morning or prior to pt leaving (at this time if ordered won't be trough level). PLAN: AT this point, pt appears back to baseline and can return back to [facility]. Total time managing care of this patient today ____ minutes.
--- NOTE | 2022-08-03 15:40 | MHC.EDTECH ---
this pct assumed care of pt at 1500 ,vitals sign taken ,repeated lab drawn and sent to lab .
[2022-08-03 15:55] LABS: Lithium 0.55 mmol/L (0.60-1.20)
--- NOTE | 2022-08-03 16:01 | MHC.CM.ED ---
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 Referral made in [facility] so facility can follow patient. Continue to monitor for d/c needs.
== END 2022-08-03 18:34 | disposition skilled nursing facility (03) ==
PROVIDERS: Social Worker; Emergency Provider Emergency Medicine; PCP Emergency Medicine
DX: F06.30 Mood disorder due to known physiological condition, unspecified (principal); F39 Unspecified mood [affective] disorder; R94.31 Abnormal electrocardiogram [ECG] [EKG]; Z87.820 Personal history of traumatic brain injury; Z20.822 Contact with and (suspected) exposure to COVID-19; Z20.828 Contact with and (suspected) exposure to other viral communicable diseases; Z79.899 Other long term (current) drug therapy
CPT/HCPCS: 36415; 70450; 80053; 80178; 80307; 81001; 82077; 84443; 85025; 87635; 93005; 96372; 99285; S9485

== ENCOUNTER 2022-08-03 23:29 | Emergency (ER) | payer MEDICARE, MEDICAID, SELFPAY ==
--- NOTE | ~2022-08-03 | CT_ITS ---
EXAMINATION: CT HEAD WITHOUT CONTRAST CLINICAL INFORMATION: CVA. COMPARISON: CT head dated 08/03/2022. TECHNIQUE: Contiguous axial imaging was performed from the skull base to vertex without intravenous administration of contrast. This CT examination was performed using dose optimization techniques as appropriate, variously including the following: *Automated exposure control *Adjustment of mA and/or kV according to patient size (this includes techniques or standardized protocols for targeted exams where dose is matched to indication/reason for exam; i.e. extremities or head) *Use of iterative reconstruction technique DLP: 652 mGy-cm FINDINGS: No acute intracranial hemorrhage. No mass effect or midline shift. No parenchymal lesion. The ace-white differentiation is maintained. No extra-axial fluid collection. The ventricles and sulci are mildly prominent, consistent with diffuse atrophy and unchanged. The basal cisterns are patent. The calvarium is intact. The visualized paranasal sinuses and mastoid air cells are clear. CT/CT head/brain wo IV con IMPRESSION: 1. No acute intracranial hemorrhage or mass effect. 2. Mild diffuse atrophy, unchanged.
--- NOTE | 2022-08-03 23:33 | ED.PSYCH ---
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 Patient combative towards staff members there admission care as well as EMS and police. Patient is spitting, combative, kicking, he arrives in restraints and with a spit gloria on. Patient refusing to answer most of my questions however is alert and oriented to person and place. Unable to obtain a review of systems per HPI. When I asked him if anything hurts he tells me no. He does tell me he suicidal and homicidal without particular plan. Related Data Home Medications Medication Instructions Recorded Confirmed acetaminophen 325 mg tablet 650 mg PO Q6H PRN Fever Or Pain 08/01/22 08/01/22 (Tylenol) apixaban 5 mg tablet (Eliquis) 5 mg PO BID 08/01/22 08/01/22 bisacodyl 10 mg rectal suppository 10 mg KS DAILY PRN Constipation 08/01/22 08/01/22 clonazepam 0.5 mg tablet 0.5 mg PO TID PRN Agitation 08/01/22 08/01/22 escitalopram oxalate 10 mg tablet 10 mg PO DAILY 08/01/22 08/01/22 lithium carbonate 300 mg tablet 450 mg PO BID 08/01/22 08/01/22 magnesium hydroxide 400 mg/5 mL 30 ml PO DAILY PRN Constipation 08/01/22 08/01/22 oral suspension (Milk of Magnesia) naloxone 0.4 mg/mL injection 0.4 mg IM Q2M PRN Opioid Overdose 08/01/22 08/01/22 syringe naloxone 4 mg/actuation nasal 4 mg intranasal Q1M PRN Opioid 08/01/22 08/01/22 spray (Narcan) Overdose polyethylene glycol 3350 17 gram 17 g PO DAILY 08/01/22 08/01/22 oral powder packet (Miralax) risperidone 0.25 mg tablet 0.25 mg PO BID 08/01/22 08/01/22 risperidone 0.5 mg tablet 0.5 mg PO BID PRN Agitation 08/01/22 08/01/22 (Risperdal) risperidone microspheres 50 mg/2 50 mg IM Q14D 08/01/22 08/01/22 mL intramuscular susp,ext release (Risperdal Consta) sennosides 8.6 mg tablet (senna) 8.6 mg PO BID 08/01/22 08/01/22 sennosides 8.6 mg-docusate sodium 1 tab-cap PO DAILY PRN Constipation 08/01/22 08/01/22 50 mg tablet (Senna with Docusate Sodium) aspirin 81 mg tablet,delayed 81 mg PO QAM 08/03/22 08/04/22 release risperidone 1 mg tablet 1 mg PO BID 08/03/22 08/03/22 topiramate 100 mg tablet 100 mg PO BID 08/03/22 08/03/22 Allergies Allergy/AdvReac Type Severity Reaction Status Date / Time No Known Allergies Allergy Verified 08/01/22 16:49 Review of Systems Review of Systems: Yes Unobtainable due to mental status PMFSH Past Medical History Attestation statement: The following information was validated with the patient. Source: old records reviewed and nursing notes reviewed Social History Social History Advance Directives: No Advance Directives Information Provided: Yes Physical Exam Vital Signs: Vital Signs: Last Vital Signs Temp 99.3 F 08/03/22 23:45 Pulse 120 H 08/03/22 23:45 Resp 16 08/04/22 00:30 BP 154/89 H 08/03/22 23:45 Pulse Ox 95 08/03/22 23:45 O2 Del Method Room Air 08/03/22 23:45 BMI result Body Mass Index 22.6 Vital signs stayed Appearance: Alert.? Oriented to person and palce.? No acute distress.? Head: Normocephalic, atraumatic, no step-offs or deformities Eyes: Pupils equal, round and reactive to light.? CVS: Normal heart rate and rhythm.? Pulses normal.? Respiratory: No respiratory distress.? Breath sounds normal.? Abdomen: Soft and nontender.? Skin: Skin warm and dry.? Normal skin color.? Normal skin turgor.? Extremities: No lower extremity edema.? No calf ttp. 5/5 strength to bilateral upper and lower extremities Neuro: Oriented to person and place.? No motor deficit.? No sensory deficit. CN 2-12 intact Course Reevaluation(s) Reevaluation #1: Cooperative with labs. However he did have labs 2 days ago which were essentially unremarkable. He was medically cleared from this facility and discharged home today. No medical complaints. Who place him in observation, pending care and psychiatric consult. At time observation was started patient refusing labs, responded well to medical restraints however. Time: 00:51 Medications Administered Discontinued Medications Generic Name Dose Route Start Last Admin Trade Name Sourav PRN Reason Stop Dose Admin Diphenhydramine HCl 50 mg 08/03/22 23:32 08/03/22 23:45 Diphenhydramine Hcl 50 Mg/Ml Vial IM 08/03/22 23:33 50 mg ONCE ONE Administration Haloperidol Lactate 5 mg 08/03/22 23:32 08/03/22 23:45 Haloperidol Lactate 5 Mg/Ml Vial IM 08/03/22 23:33 5 mg STAT STA Administration Lorazepam 2 mg 08/03/22 23:32 08/03/22 23:45 Lorazepam 2 Mg/Ml Vial IM 08/03/22 23:33 2 mg ONCE ONE Administration Medical Decision Making Medical Decision Making [facility] Narrative: 2345 66-year-old male who was just discharged from our facility today at 02:48 p.m. presents for combative behavior from [facility]. Patient presents in restraints and with a spit gloria. 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 Reports suicidal and homicidal ideation on arrival refusing to answer many questions. Unable to obtain clear history review of systems. For patient's safety and for safety of staff members due to combative behavior medication restraints ordered. Physical exam patient agitated remainder of exam benign. Likely mood disorder verses paranoia versus schizophrenia. Unlikely metabolic derangement Plan medical clearance evaluation by behavioral health team Differential Diagnosis Differential Diagnoses: The differential diagnosis associated with the presentation includes Likely mood disorder verses paranoia versus schizophrenia. Unlikely metabolic derangement Admission/Observation Consideration of admission/observation: Escalation of care including admission/observation considered Lab Data [facility] Lab Attestation statement: I reviewed the patient's lab results. Labs: Lab Results 08/03/22 Range/Units 23:52 COVID-19 ([facility]) Negative (Negative) COVID-19 Clin Com See Note External Record Review External record reviewed: Inpatient record, Office record, Outpatient record, Prior outpatient labs, Prior outpatient radiology, Primary care record and Outside ED record Core Measures AMI core measures followed: Yes Measure exclusions: not indicated Critical Care Time Critical Care Time Critical Care Time: No Discharge Plan Discharge Clinical Impression: Mood disorder as late effect of traumatic brain injury Patient Disposition: Admitted As Inpatient Prescriptions: No Action Eliquis 5 mg Tablet 5 mg PO BID sennosides [senna] 8.6 mg Tablet 8.6 mg PO BID acetaminophen [Tylenol] 325 mg Tablet 650 mg PO Q6H PRN (Reason: Fever Or Pain) Rx Instructions: Do not exceed 3g / 24 hrs polyethylene glycol 3350 [Miralax] 17 gram Powder In Packet 17 g PO DAILY Rx Instructions: 17g in 40z beverage clonazepam 0.5 mg Tablet 0.5 mg PO TID PRN (Reason: Agitation) Rx Instructions: not to exceed 2 doses in 24 hrs sennosides-docusate sodium [Senna with Docusate Sodium] 8.6-50 mg Tablet 1 tab-cap PO DAILY PRN (Reason: Constipation) risperidone [Risperdal] 0.25 mg Tablet 0.25 mg PO BID magnesium hydroxide [Milk of Magnesia] 400 mg/5 mL Suspension 30 ml PO DAILY PRN (Reason: Constipation) bisacodyl 10 mg Suppository 10 mg KS DAILY PRN (Reason: Constipation) lithium carbonate 300 mg Tablet 450 mg PO BID risperidone [Risperdal] 0.5 mg Tablet 0.5 mg PO BID PRN (Reason: Agitation) Rx Instructions: EXPIRES 08/09/22 naloxone [Narcan Prefilled] 0.4 mg/mL Syringe 0.4 mg IM Q2M PRN (Reason: Opioid Overdose) Rx Instructions: NTExceed 10 mg total dose/episode escitalopram oxalate 10 mg Tablet 10 mg PO DAILY Risperdal Consta 50 mg/2 mL Suspension,Extended Rel Recon 50 mg IM Q14D Rx Instructions: LAST DOSE: 07/26/22 naloxone [Narcan] 4 mg/actuation [place],Non-Aerosol 4 mg INTRANASAL Q1M PRN (Reason: Opioid Overdose) Rx Instructions: spray 1 dose into ONE nostril; alternate nostrils w each dose until help arrives risperidone 1 mg Tablet 1 mg PO BID topiramate 100 mg Tablet 100 mg PO BID aspirin 81 mg Tablet,Delayed Release (Dr/Ec) 81 mg PO QAM
[2022-08-03 23:41] VITALS: BMI 22.6
[2022-08-03 23:45] VITALS: BP 154/89; PULSE 120; RESP 20; TEMP 37.4; O2SAT 95
[2022-08-03] MEDS: diphenhydrAMINE HCL 50 MG/ML VIAL IM (23:45)
[2022-08-03] MEDS: Haloperidol Lactate 5 MG/ML VIAL IM (23:45)
[2022-08-03] MEDS: LORazepam 2 MG/ML VIAL IM (23:45)
[2022-08-04] VITALS: RESP 18
[2022-08-04 00:15] VITALS: RESP 16
[2022-08-04 00:18] LABS: COVID-19 Test Negative (Negative); IDNOW Serial# 6674DD1D
[2022-08-04 00:30] VITALS: RESP 16
[2022-08-04 00:45] VITALS: RESP 16
--- NOTE | 2022-08-04 06:49 | PC.NURSE ---
Patient slept through the night, no distress observed/reported, patient at the time arrival aggressive required chemical restraint, Ativan 2 mg IM, Haldol 5 mg IM, and Benadryl 50 mg IM administered at 2345 with + effect, med rec completed/pending provider's approval, care consult ordered/pending evaluation, VSS, will continue to monitor.
[2022-08-04] MEDS: Lithium Carbonate 300 MG CAPSULE 450 MG PO (10:35)
[2022-08-04] MEDS: Escitalopram Oxalate 10 MG TABLET PO (10:40)
[2022-08-04] MEDS: Apixaban 5 MG TABLET PO ×2 (10:40→21:52)
--- NOTE | 2022-08-04 11:49 | PC.NURSE ---
Pt lethargic. Able to wake with sternal rub assist of 1. Pt able to take PO medications. Pt reports having regular BM's. BM meds held this am.
[2022-08-04 12:30] VITALS: BP 142/65; PULSE 66; RESP 15; TEMP 36.7; O2SAT 97
--- NOTE | 2022-08-04 16:07 | MHC.CARE ---
Pt was seen by CARE team for assessment and disposition could not be reached. Pt was then seen for psych consult today08/04/22, recommendation is for inpatient admission to [facility] per Eunice Alfaro NP. SNF facility was notified that Lázaro does met criteria for inpatient level of care on [facility] unit and will remain boarding in ED until a bed can be secured.
[2022-08-04 21:40] VITALS: BP 129/65; PULSE 72; RESP 18; TEMP 36.6; O2SAT 100
[2022-08-04] MEDS: Lithium Carbonate 300 MG TABLET 450 MG PO (21:51)
[2022-08-04] MEDS: Sennosides 8.6 MG TABLET PO (21:52)
--- NOTE | 2022-08-05 00:46 | PC.NURSE ---
Patient just woke up, had episode of bladder incontinence, assisted patient for shower/showered/compliant, patient is not independent of ADL require one assist, gait unsteady requires supervision, medication compliant, behavior calm and non concerning, disposition per care team is section 12 [facility] inpatient bed search, VSS, will continue to monitor.
[2022-08-05 00:59] VITALS: BP 127/76; PULSE 100; RESP 17; TEMP 36.5; O2SAT 94
[2022-08-05] MEDS: polyethylene glycoL 3350 17 GM POWD.PACK PO (08:19)
[2022-08-05 08:20] VITALS: BP 116/63; PULSE 75; RESP 16; TEMP 37.6; O2SAT 94
[2022-08-05] MEDS: Sennosides 8.6 MG TABLET PO ×2 (08:20→20:55)
[2022-08-05] MEDS: Apixaban 5 MG TABLET PO ×2 (08:20→20:55)
[2022-08-05] MEDS: Escitalopram Oxalate 10 MG TABLET PO (08:20)
[2022-08-05] MEDS: Lithium Carbonate 300 MG TABLET 450 MG PO ×2 (08:20→20:55)
--- NOTE | 2022-08-05 09:06 | PC.NURSE ---
Pt is alert/awake. Declined breakfast. accepted Am meds. Calm/cooperative. Skin pwd. Sleepy but eyes open watching tv at this time.
--- NOTE | 2022-08-05 12:47 | MHC.CARE ---
08/05/22 June bed search was conducted & unfortunately there are no appropriate beds available so this search is now exhausted. Bed search will resume tomorrow if deemed appropriate.
--- NOTE | 2022-08-05 13:18 | PM.PSYCN ---
History of Present Illness Date of Service: 08/05/2022 Chief Complaint: section 12 crisis Sources of Information: patient interviewed, chart reviewed and crisis/core team assessment reviewed HPI Narrative: Pt seen by psychiatric a few days ago for evaluation for aggression. Pt return to ED from for aggression/combative behaviors. Pt seen, presents as calm. No recall of events leading to this admission. He denies SI/HI. Will resume medications. [facility] team working on dispo. Past Psychiatric History: Inpatient: none prior Diagnostics Vital Signs (24Hr): Vital Signs - 24 hr 08/04/22 21:40 08/05/22 00:59 08/05/22 08:20 Temperature 97.8 F 97.7 F 99.6 F Pulse Rate 72 100 75 Respiratory Rate 18 17 16 Blood Pressure 129/65 127/76 116/63 Pulse Oximetry 100 94 94 Oxygen Delivery Method Room Air Room Air Room Air BMI result Body Mass Index 22.6 Labs 08/06/22 09:34 08/06/22 09:34 Labs: Laboratory Results - last 48 hr 08/03/22 23:52 COVID-19 ([facility]) Negative COVID-19 Clin Com See Note Mental Status Exam Mental Status Exam Narrative: Appearance: thin, disheleved, in NAD Behavior: pleasant Psychomotor: no agitation or retardation noted Speech: clear, normal rate/rhythm, volume, spontaneous TP: mostly linear/ some confabulation noted TC: feeling better that he reports less leg pain Mood: good Affect: congruent, somewhat constricted, non labile SI: denies HI: denies AH/VH: no signs of responding to internal stimuli Delusions: no signs of delusional content noted or reported. Insight/judgment: impaired x 2. Memory/cog: alert, not oriented to city, year, situation, unable to retain new information and does not know how long he has been here or what brought him here. Medications Medications Current Medications Acetaminophen (Acetaminophen 325 Mg Tablet) 650 mg PO Q6H PRN PRN Reason: Fever Or Pain Apixaban (Apixaban 5 Mg Tablet) 5 mg PO BID [facility] Last Admin: 08/05/22 08:20 Dose: 5 mg Clonazepam (Clonazepam 0.5 Mg Tablet) 0.5 mg PO TID PRN PRN Reason: Agitation Escitalopram Oxalate (Escitalopram Oxalate 10 Mg Tablet) 10 mg PO DAILY [facility] Last Admin: 08/05/22 08:20 Dose: 10 mg [place] Carbonate ([place] Carbonate 300 Mg Tablet) 450 mg PO BID [facility] Last Admin: 08/05/22 08:20 Dose: 450 mg Non-Formulary Medication (Risperidone Microspheres) 50 mg IM Q14D [facility] Polyethylene Glycol (Polyethylene Glycol 3350 17 Gm Powd.Pack) 17 gm PO DAILY [facility] Last Admin: 08/05/22 08:19 Dose: 17 gm Senna (Sennosides 8.6 Mg Tablet) 8.6 mg PO BID [facility] Last Admin: 08/05/22 08:20 Dose: 8.6 mg Allergies Allergies Allergy/AdvReac Type Severity Reaction Status Date / Time No Known Allergies Allergy Verified 08/01/22 16:49 Assessment & Plan Assessment & Plan (1) Mood disorder as late effect of traumatic brain injury: Status: Acute Code(s): F06.30 - Mood disorder due to known physiological condition, unspecified; S06.9XAS - Unspecified intracranial injury with loss of consciousness status unknown, sequela Plan resume home medications care team working on dispo to inpatient Total time managing care of this patient today ____ minutes.
[2022-08-05 14:38] LABS: Alanine Aminotransferase 8 U/L (0-40); Albumin Level 3.7 g/dL (3.5-5.0); Alkaline Phosphatase 115 U/L (39-117); Anion Gap 10 (12-20); Aspartate Amino Transferase 18 U/L (5-37); Bilirubin Total 0.7 mg/dL (0.0-1.0); Blood Urea Nitrogen 11 mg/dL (9-16); Calcium 9.1 mg/dL (8.4-10.2); Carbon Dioxide 28 mmol/L (22-29); Chloride 107 mmol/L (96-108); Creatinine Clr Calc Pharmacy 68.9; Estimated Glomerular Filt Rate > 60; Glucose Random 115 mg/dL (60-115); Potassium 3.8 mmol/L (3.3-5.1); Sodium 141 mmol/L (135-145); Total Protein 6.4 g/dL (6.5-8.0)
--- NOTE | 2022-08-05 16:28 | PC.NURSE ---
Pt. was seen in the pod of ED by OT for an individual session. Pt. was found sitting upright in bed while watching television wearing hospital attire. Pt. was alert and oriented to person but not time and place. Affect appeared calm and cooperative though the pt. verbalized anxiety and confusion. Pt. struggled to engage in conversation and spoke at a barely audible volume, but did state that he was good. This development writer provided sensory materials for the pt. to engage with including a stress ball, a squishy sensory toy, and a container of playdough. This development writer demonstrated to the pt. ways to use the materials including rolling them in his hands, squeezing them, twisting them, or kneading the dough. Pt. responded by smiling and engaging in the demonstrated use of the materials. However, pt. displayed limited interest as he engaged for several moments and then placed each item on his bed stand. Pt. would benefit from further cognitive assessment.
[2022-08-05 17:25] LABS: MANUAL DIFF FLAG NO
[2022-08-05 17:26] LABS: Basophils Percent Auto 0.4 % (0-2); Eosinophils Absolute Auto 0.3 X10*3/uL (0.0-0.4); Eosinophils Percent Auto 3.5 % (0-4); Hematocrit 39.5 % (42.0-52.0); Hemoglobin 12.3 g/dl (14.0-18.0); Imm Gran Abs Auto 0.02 X10*3/uL (0.00-0.03); Imm Gran Pct Auto 0.2 % (0.0-0.4); Lymphocytes Absolute Auto 2.1 X10*3/uL (1.2-4.9); Lymphocytes Percent Auto 24.9 % (20-40); Mean Corpuscular HGB Conc 31.1 g/dl (31.0-36.0); Mean Corpuscular Hemoglobin 28.3 pg (27.0-33.0); Mean Corpuscular Volume 90.8 fL (80.0-98.0); Mean Platelet Volume 9.3 fL (9.4-12.4); Monocytes Absolute Auto 0.7 X10*3/uL (0.1-1.2); Monocytes Percent Auto 8.2 % (2-11); Neutrophils Absolute Auto 5.3 x10*3/uL (2.0-8.3); Neutrophils Percent Auto 62.8 % (45-73); Platelet Count 194 X10*3/uL (160-400); Red Blood Count 4.35 X10*6/uL (4.60-5.80); Red Cell Distribution Width 15.8 % (11.0-16.0); White Blood Count 8.4 X10*3/uL (4.8-10.8)
[2022-08-05 21:02] VITALS: BP 121/62; PULSE 62; RESP 18; TEMP 36.9; O2SAT 97
--- NOTE | 2022-08-06 05:27 | PC.NURSE ---
Patient slept through the night, no distress observed/reported, behavior non concerning, memory deficit needs help to locate bathroom, disposition per care team is section 12 inpatient June bed search, no update on bed search yet, medication compliant, VSS, will continue to monitor.
[2022-08-06 06:20] VITALS: BP 125/66; PULSE 65; RESP 19; TEMP 36.8; O2SAT 95
--- NOTE | 2022-08-06 08:45 | MHC.CARE ---
[facility] bed[facility] exhausted, no appropriate beds available. Will resume search tomorrow
[2022-08-06 09:09] VITALS: BP 148/75; PULSE 75; RESP 12; O2SAT 96
--- NOTE | 2022-08-06 09:09 | ECG_ITS ---
Test Reason : ams Blood Pressure : / mmHG Vent. Rate : 066 BPM Atrial Rate : 066 BPM P-R Int : 176 ms QRS Dur : 090 ms QT Int : 448 ms P-R-T Axes : 078 042 083 degrees QTc Int : 469 ms Normal sinus rhythm Nonspecific T wave abnormality Prolonged QT Abnormal ECG When compared with ECG of 03-AUG-2022 14:35, No significant change was found Referred By: Anselmo Fabian Electronically Signed By:ROXY CARVER MD
[2022-08-06 09:31] LABS: Glucose, Whole Blood 108 mg/dL (60-115)
[2022-08-06] MEDS: 0.9 % Sodium Chloride 1,000 ML 999 ML IVCONT (09:36)
--- NOTE | 2022-08-06 09:39 | PC.NURSE ---
Pt moved from pod to bed 10, pt minimally responsive at this time. Vss, resp even and unlabored. IV established, labs drawn and sent. Straight cath done, urine obtained. Patient observer at bedside, NSR on monitor. PO medications held at this time
[2022-08-06 09:40] LABS: MANUAL DIFF FLAG NO
[2022-08-06 09:42] VITALS: BP 137/72; PULSE 58; RESP 12; O2SAT 96
[2022-08-06 09:45] LABS: Basophils Percent Auto 0.4 % (0-2); Eosinophils Absolute Auto 0.3 X10*3/uL (0.0-0.4); Hematocrit 41.2 % (42.0-52.0); Hemoglobin 12.9 g/dl (14.0-18.0); Imm Gran Abs Auto 0.01 X10*3/uL (0.00-0.03); Imm Gran Pct Auto 0.1 % (0.0-0.4); Lymphocytes Absolute Auto 2.6 X10*3/uL (1.2-4.9); Lymphocytes Percent Auto 31.2 % (20-40); Mean Corpuscular HGB Conc 31.3 g/dl (31.0-36.0); Mean Corpuscular Hemoglobin 28.4 pg (27.0-33.0); Mean Corpuscular Volume 90.5 fL (80.0-98.0); Mean Platelet Volume 10.1 fL (9.4-12.4); Monocytes Absolute Auto 0.7 X10*3/uL (0.1-1.2); Monocytes Percent Auto 8.9 % (2-11); Neutrophils Absolute Auto 4.6 x10*3/uL (2.0-8.3); Neutrophils Percent Auto 55.4 % (45-73); Platelet Count 207 X10*3/uL (160-400); Red Blood Count 4.55 X10*6/uL (4.60-5.80); Red Cell Distribution Width 15.7 % (11.0-16.0); White Blood Count 8.3 X10*3/uL (4.8-10.8)
[2022-08-06 09:46] LABS: Appearance Urine Clear; Color Urine Yellow; Glucose Urine UA Negative (Negative); Leukocyte Esterase Urine Trace (Negative); Nitrite Urine Negative (Negative); UMIC TRIGGER UACC YES; Urine Blood Negative (Negative); Urine Ketones Negative (Negative); Urine Protein Negative (Neg-Trace)
[2022-08-06 09:48] VITALS: BP 137/72; PULSE 71; RESP 9; O2SAT 96
[2022-08-06 09:54] LABS: Bacteria Urine None Seen (None Seen); Hyaline Casts Urine 0-2 /LPF (0-2); RBC Urine 0-2 /HPF (0-2); Squamous Epithelial Cell Urine 0-2 /HPF (0-2); WBC Urine 0-5 /HPF (0-5)
[2022-08-06 09:59] LABS: Lithium 0.61 mmol/L (0.60-1.20)
--- NOTE | 2022-08-06 10:09 | MHC.CARE ---
0830 - Attempted to rouse pt from his sleep to conduct an MSU. CARE Team knocked on his door with no effect. Pt appeared to be asleep at the time.
[2022-08-06 10:10] LABS: Troponin-I High Sensitivity 2.7 ng/L (<3.5-35.0)
--- NOTE | 2022-08-06 10:11 | PC.NURSE ---
Pt awake, nodding head and acknowledging questions. IV fluids infusing
[2022-08-06 10:20] LABS: Alanine Aminotransferase 10 U/L (0-40); Albumin Level 3.4 g/dL (3.5-5.0); Alkaline Phosphatase 115 U/L (39-117); Anion Gap 11 (12-20); Aspartate Amino Transferase 22 U/L (5-37); Bilirubin Total 0.6 mg/dL (0.0-1.0); Blood Urea Nitrogen 11 mg/dL (9-16); Calcium 8.9 mg/dL (8.4-10.2); Carbon Dioxide 24 mmol/L (22-29); Chloride 109 mmol/L (96-108); Estimated Glomerular Filt Rate > 60; Glucose Random 116 mg/dL (60-115); Potassium 4.5 mmol/L (3.3-5.1); Sodium 139 mmol/L (135-145); Total Protein 6.3 g/dL (6.5-8.0)
[2022-08-06 11:45] VITALS: BP 131/67; PULSE 58; RESP 13; O2SAT 98
--- NOTE | 2022-08-06 12:05 | PC.NURSE ---
Ambulated with assist by turner machine slow steady gait, eyes open, in bed denies concern. Quiet, difficult to engage in conversationl Respirations even and non labored.
[2022-08-06] MEDS: Acetaminophen 325 MG TABLET 650 MG PO (14:09)
--- NOTE | 2022-08-06 14:12 | PC.NURSE ---
Tylenol 650 2 tabs for pain scale #5 mid back, taking fluids, pleasant , watching tv.
--- NOTE | 2022-08-06 14:14 | PC.NURSE ---
Acetaminophen 350 mg 2 tabs for maximum of 650 mg. (clarified)
--- NOTE | 2022-08-06 14:17 | PC.NURSE ---
Acetaminophen 325 mg po 2 tabs total of 650 mg for mid back pain #5 , taking fluids, pleasant, watching tv. Able to make his needs known
[2022-08-06 15:55] VITALS: BP 145/68; PULSE 85; RESP 14
--- NOTE | 2022-08-06 16:50 | PC.NURSE ---
Pt. was seen by OT in the pod of the ED for a MOCA administration. Pt. was found lying supine in bed under the covers watching television and was Min A while transferring from bed to chair. Pt. was alert but oriented only to person. Pt. scored a 10/36, indicating a severe cognitive impairment. Pt. was able to copy the cube and draw the clock accurately with minimal errors that were more indicative of his poor FM skills resulting from his hand tremor. Named all 3 animals correctly immediately upon viewing them. Pt. was able to complete 4/5 words on immediate recall, but 0/5 on delayed recall. Identified 2 words after both category and multiple choice cueing. Pt. accurately repeated the digits under the attention portion of the assessment, but was unable to perform serial 7s or tap along with the letter A . Identified only 6 words starting with the letter F in 1 minute. Pt. was able to state that trains and bicycles both have wheels but was unable to identify the similarity between a watch and a ruler. Pt. was severely disoriented in relation to time and place. Stated I have no idea when asked the date and when he was asked to guess, he stated, January 2012. Pt. is severely limited cognitively and further cognitive assessment is recommended at this time.
[2022-08-06] MEDS: Lithium Carbonate 300 MG TABLET 450 MG PO (20:03)
[2022-08-06] MEDS: Apixaban 5 MG TABLET PO (20:04)
[2022-08-06] MEDS: Sennosides 8.6 MG TABLET PO (20:04)
[2022-08-07 05:51] VITALS: BP 126/73; PULSE 106; RESP 18; TEMP 36.2; O2SAT 98
--- NOTE | 2022-08-07 05:51 | PC.NURSE ---
Patient slept through the night, no distress observed/reported, gait slow steady, behavior non concerning, appetite poor, medication compliant, patient had one episode of incontinence of bladder, incontinence care provider/refused to wear pull up at this time, disposition per care team section 12 inpatient ying bed search, no update on bed search yet, VSS, will continue to monitor.
--- NOTE | 2022-08-07 07:34 | PC.NURSE ---
walked to the bathroom with assist of 2. Pt urinated. Offered shower, Pt refused. Offered breakfast, pt refused. Bandage removed form L lateral thigh, no wound or bruising noted. Pt resting in bed at this time.
[2022-08-07] MEDS: Lithium Carbonate 300 MG TABLET 450 MG PO ×2 (10:02→20:11)
[2022-08-07] MEDS: Apixaban 5 MG TABLET PO ×2 (10:02→20:11)
[2022-08-07] MEDS: Escitalopram Oxalate 10 MG TABLET PO (10:04)
--- NOTE | 2022-08-07 11:27 | MHC.CARE ---
[facility] bed[facility] exhausted, no appropriate beds available. Will resume search tomorrow
[2022-08-07] MEDS: Sennosides 8.6 MG TABLET PO (20:11)
--- NOTE | 2022-08-07 21:30 | MHC.EDTECH ---
pt ambulated to bathroom independently
--- NOTE | 2022-08-08 05:05 | PC.NURSE ---
Patient slept through the night, no distress observed/reported, gait slow steady, behavior non concerning, medication compliant, disposition per care team continues to be section 12 inpatient ying bed search, no update on bed search yet, VSS, will continue to monitor.
[2022-08-08 06:37] VITALS: BP 126/62; PULSE 70; RESP 12; TEMP 36.8; O2SAT 94
[2022-08-08] MEDS: Escitalopram Oxalate 10 MG TABLET PO (08:03)
[2022-08-08] MEDS: Sennosides 8.6 MG TABLET PO (08:03)
[2022-08-08] MEDS: polyethylene glycoL 3350 17 GM POWD.PACK PO (08:03)
[2022-08-08] MEDS: Apixaban 5 MG TABLET PO (08:03)
[2022-08-08] MEDS: Lithium Carbonate 300 MG TABLET 450 MG PO (08:03)
--- NOTE | 2022-08-08 10:15 | PC.NURSE ---
Per care team patient is cleared for discharge back to senior living. Discharge paper work is in the process.
== END 2022-08-08 11:10 | disposition skilled nursing facility (03) ==
PROVIDERS: Emergency Medicine; Physician Assistant; Social Worker; Emergency Provider Internal Medicine; PCP Emergency Medicine
DX: F34.81 Disruptive mood dysregulation disorder (principal); R45.851 Suicidal ideations; R53.83 Other fatigue; R94.31 Abnormal electrocardiogram [ECG] [EKG]; R51.9 Headache, unspecified; Z87.820 Personal history of traumatic brain injury; Z79.899 Other long term (current) drug therapy; Z20.822 Contact with and (suspected) exposure to COVID-19
CPT/HCPCS: 36415; 70450; 80053; 80178; 81001; 82947; 84484; 85025; 87635; 93005; 96360; 96372; 99285; J1200; J2060; S9485